=== PATIENT | male | born 1945 | race Hispanic/Latino ===

== ENCOUNTER 2021-03-12 07:29 | Observation (INO) | payer MEDICARE ==
[2021-03-12] MEDS ORDERED: ASPIRIN EC 325 MG TAB PO NR (08:37)
[2021-03-12] MEDS ORDERED: SODIUM CHLORIDE 0.9% 500 ML 500 ML IV SCH (09:00)
[2021-03-12 09:25] LABS: Basophils # (Auto) 0.1 K/mm3 (0.0-0.1); Eosinophils # (Auto) 0.4 K/mm3 (0.0-0.4); Eosinophils % (Auto) 6.1 % (0.0-4.3); Hematocrit 38.8 % (35.5-45.6); Hemoglobin 12.8 gm/dl (11.8-15.2); Lymphocytes # (Auto) 1.8 K/mm3 (1.2-5.4); Lymphocytes % (Auto) 24.6 % (13.4-35.0); Mean Corpuscular HGB Conc 33 % (32-34); Mean Corpuscular Volume 91 fl (84-94); Monocytes # (Auto) 0.7 K/mm3 (0.0-0.8); Platelet Count 213 K/mm3 (140-440); Red Blood Count 4.26 M/mm3 (3.65-5.03); Red Cell Distribution Width 13.5 % (13.2-15.2)
[2021-03-12] MEDS ORDERED: HEPARIN/NS 5000 UNIT/500ML 1,000 ML IR ONE (09:39)
[2021-03-12] MEDS ORDERED: NITROGLYCERIN SYRINGE 3 ML ONE (09:40)
[2021-03-12] MEDS ORDERED: MIDAZOLAM 2 MG/2 ML INJ ONE (09:40)
[2021-03-12] MEDS ORDERED: VERAPAMIL 5 MG/2 ML INJ ONE (09:40)
[2021-03-12] MEDS ORDERED: fentaNYL 100 MCG/2 ML INJ ONE (09:40)
[2021-03-12 09:46] LABS: BUN/Creatinine Ratio 21; Blood Urea Nitrogen 21 mg/dL (9-20); Calcium 9.6 mg/dL (8.4-10.2); Hemolysis Index 4
[2021-03-12 09:48] LABS: INR 0.97 (0.87-1.13)
[2021-03-12] MEDS: LIDOCAINE (2%) 20 MG/1 ML VIAL 20 ML MDV INFILTRATI ONE ×3 (10:37→10:56)
[2021-03-12] MEDS: HEPARIN 10,000 UNITS/10 ML VIAL ONE ×2 (11:12→11:36)
[2021-03-12] MEDS ORDERED: HEPARIN/NS 5000 UNIT/500ML 500 ML IR ONE (11:21)
[2021-03-12] MEDS ORDERED: CLOPIDOGREL 300 MG TAB ONE (11:43)
[2021-03-12] MEDS ORDERED: ALUM-MAG HYDROXIDE-SIMETHICONE 200-200-20MG/5ML ORAL LIQD 30 ML ONE (11:44)
[2021-03-12] MEDS ORDERED: HEPARIN 10,000 UNITS/10 ML VIAL ONE (11:46)
[2021-03-12] MEDS ORDERED: ONDANSETRON 4 MG/2 ML INJ IV PRN (12:11)
[2021-03-12] MEDS ORDERED: traMADol 50 MG TAB PO PRN (12:11)
[2021-03-12] MEDS ORDERED: SENNOSIDES 8.6 MG TAB PO PRN (12:11)
[2021-03-12] MEDS ORDERED: ACETAMINOPHEN 325 MG TAB PO PRN ×2 (12:11→13:26)
[2021-03-12] MEDS ORDERED: SODIUM CHLORIDE 0.9% 1000 ML 1,000 ML IV SCH (12:15)
--- NOTE | 2021-03-12 12:30 | Cardiac Catherization Report ---
DATE OF SERVICE: 03/12/2021 CARDIAC CATHETERIZATION AND CORONARY ANGIOPLASTY REPORT REASON FOR PROCEDURE: The patient is a 76-year-old man that underwent an outpatient cardiac ischemic evaluation with a thallium stress test that revealed a large inferolateral defect with mild reversible ischemia. He was recommended to undergo cardiac catheterization. PROCEDURES: 1. Left heart catheterization. 2. Selective left and right coronary angiography. 3. Left ventricular angiography. 4. Coronary angioplasty and stenting of the first obtuse marginal branch of the circumflex artery. 5. Sedation time start 10:52, end 11:38. DESCRIPTION OF PROCEDURE: The patient was prepped and draped in a sterile fashion after informed consent. The right femoral artery was entered using Seldinger technique followed by placement of a 6-Irish sheath. Selective left and right coronary angiography was performed using #4 left and right Samuel catheters. The pigtail catheter was used for left ventricular angiography. The angiograms were reviewed. CORONARY ANGIOGRAPHY: The left ventricular end-diastolic pressure was 18, following coronary angiography. Ascending aortic pressure 145/69. There was no significant pressure gradient on pullback across the aortic valve. There was mild proximal narrowing of the left main coronary artery. Left anterior descending artery contained mild luminal irregularities in its mid to distal segment, there was a 50-60% stenosis of the distal LAD at its apex. The first diagonal branch of the LAD was a medium sized vessel that contained a >90% ostial stenosis. This was followed by diffuse [id number] atherosclerosis of this medium sized branch vessel. The first obtuse marginal branch of the circumflex artery was a medium to large vessel that contained a long, 80-90% stenosis of its proximal-mid segment. Following that, the AV groove circumflex then terminated in another large, terminal obtuse marginal. There was diffuse moderate atherosclerosis of the mid circumflex leading into this terminal branch. The right coronary artery was a large caliber, dominant vessel that contained mild narrowing in its mid segment, but otherwise free of significant atherosclerosis. Left ventricle was mildly dilated, there was mild left ventricular systolic dysfunction with diffuse hypokinesis, ejection fraction 40-45%. CORONARY ANGIOPLASTY: After review of the angiograms, we recommended coronary intervention to the first obtuse marginal branch. In this scenario, the ostial stenosis of the first diagonal branch, which demonstrated no defects on thallium imaging, will be recommended for conservative medical management. We selected a 3.5 XB guiding catheter and advanced to the left coronary ostium. A 0.014 inch Enologist 50 guidewire was successfully directed into the obtuse marginal. The vessel was then predilated using a 2.25 mm balloon catheter. Following this, we deployed 2.25 x 15 mm drug-eluting stent, covering the entire lesional segment. The stent was inflated to a diameter of 2.45-2.50 mm. Following stenting, the catheters and the wires were removed, post-intervention angiogram showed an excellent angiographic result, no residual stenosis and ARACELI 3 flow maintained down the obtuse marginal. Procedure was well tolerated by the patient and there were no complications. The catheters were removed, and the patient returned to the postprocedure unit in stable condition. CONCLUSION: 1. Multivessel coronary artery disease, with a significant branch vessel disease of the first diagonal and the first obtuse marginal. 2. Successful ad hoc angioplasty and stenting of the first obtuse marginal branch, with deployment of a 2.25 mm drug-eluting stent, post-dilated to 2.45- 2.5 mm. 3. Mild left ventricular systolic dysfunction, ejection fraction 40-45%. RECOMMENDATIONS: Aggressive medical therapy including dual oral antiplatelet therapy for first obtuse marginal artery stent. Aggressive risk factor modification and medical therapy for other branch vessel and noncritical coronary artery disease. TID: [id number] RECEIPT: [id number] [facility]
[2021-03-12] MEDS: GABAPENTIN 300 MG CAP PO SCH ×2 (13:10→21:35)
[2021-03-12] MEDS: carvediloL 6.25 MG TAB PO SCH ×2 (13:10→21:35)
[2021-03-12] MEDS: PANTOPRAZOLE 20 MG TAB PO SCH (13:10)
[2021-03-12] MEDS ORDERED: HYDROcodone/ACETAMINOPHEN 5-325 MG TAB PO PRN (13:26)
[2021-03-12] MEDS ORDERED: NON-FORMULARY EACH (Albuterol Sulfate [Albuterol 0.63% Nebs] 0.63 MG/3 ML Vial.Neb) IH SCH (14:00)
[2021-03-12] MEDS ORDERED: ALBUTEROL 2.5 MG/3 ML NEBU IH SCH (14:00)
[2021-03-12] MEDS: HYDROcodone/ACETAMINOPHEN 5-325 MG TAB PO PRN ×2 (15:08→21:45)
[2021-03-12] MEDS: GEMFIBROZIL 600 MG TAB PO SCH (21:35)
[2021-03-12] MEDS ORDERED: ZOLPIDEM 5 MG TAB PO PRN (22:00)
[2021-03-12] MEDS ORDERED: PRAVASTATIN 80 MG TAB PO SCH (22:00)
[2021-03-12] MEDS ORDERED: PRAZOSIN 5 MG CAP PO SCH (22:00)
[2021-03-13 05:52] LABS: Basophils # (Auto) 0.1 K/mm3 (0.0-0.1); Basophils % (Auto) 0.9 % (0.0-1.8); Eosinophils # (Auto) 0.5 K/mm3 (0.0-0.4); Eosinophils % (Auto) 7.2 % (0.0-4.3); Hemoglobin 11.5 gm/dl (11.8-15.2); Lymphocytes # (Auto) 2.4 K/mm3 (1.2-5.4); Lymphocytes % (Auto) 36.8 % (13.4-35.0); Mean Corpuscular HGB Conc 34 % (32-34); Mean Corpuscular Volume 91 fl (84-94); Monocytes # (Auto) 0.7 K/mm3 (0.0-0.8); Monocytes % (Auto) 10.8 % (0.0-7.3); Platelet Count 185 K/mm3 (140-440); Red Blood Count 3.72 M/mm3 (3.65-5.03); Red Cell Distribution Width 13.8 % (13.2-15.2)
[2021-03-13 05:58] LABS: BUN/Creatinine Ratio 19; Blood Urea Nitrogen 15 mg/dL (9-20); Calcium 8.8 mg/dL (8.4-10.2); Hemolysis Index 8
--- NOTE | 2021-03-13 08:08 | Short Stay Summary ---
Short Stay Documentation Date of service: 03/13/21 - History H&P: obtained from office - Allergies and Medications Current Medications: Allergies No Known Allergies Allergy (Unverified 03/12/21 08:36) Home Medications Medication Instructions Recorded Confirmed Last Taken Type Albuterol Sulfate [Albuterol 0.63% 0.63 mg IH TID 03/12/21 03/12/21 03/11/21 History NEBS] 3 ml Aspirin EC [Halfprin EC] 2 tab PO HS 03/12/21 03/12/21 03/11/21 History 2 tab Gabapentin [Neurontin] 300 mg PO TID 03/12/21 03/12/21 03/11/21 History 300 mg Insulin Glargine [Lantus VIAL] 30 units SQ QAM 03/12/21 03/12/21 03/12/21 05:30 History 8 units Ipratropium/Albuter (Nf) 1 puff INHALATION PRN PRN 03/12/21 03/12/21 03/11/21 History [Combivent Inhaler] 1 puff Mirabegron [Myrbetriq] 50 mg PO QDAY 03/12/21 03/12/21 03/11/21 History 50 mg Multivit-Min/FA/Lycopen/Lutein 1 tab PO DAILY 03/12/21 03/12/21 03/11/21 History [Centrum Silver Tablet] 1 tab Pantoprazole [Protonix TAB] 20 mg PO DAILY 03/12/21 03/12/21 03/11/21 History 20 mg Pravastatin [Pravachol] 80 mg PO DAILY 03/12/21 03/12/21 03/11/21 History 80 mg Semaglutide [Ozempic] 0.5 mg SQ 1XW 03/12/21 03/12/21 03/11/21 History 0.5mg Sertraline [Zoloft] 75 mg PO DAILY 03/12/21 03/12/21 03/11/21 History 75 mg Terazosin HCl 10 mg PO DAILY 03/12/21 03/12/21 03/11/21 History 10 mg carvediloL [Coreg] 6.25 mg PO BID 03/12/21 03/12/21 03/11/21 History 6.25mg gemfibroziL [Lopid] 600 mg PO BID 03/12/21 03/12/21 03/11/21 History 600 mg Active Medications Acetaminophen (Acetaminophen 325 Mg Tab) 650 mg PO Q4H PRN PRN Reason: Pain MILD(1-3)/Fever >100.5/VICENTE Hydrocodone Bitart/Acetaminophen (Hydrocodone/Acetaminophen 5-325 Mg Tab) 1 each PO Q6H PRN PRN Reason: Pain, Moderate (4-6) Last Admin: 03/12/21 21:45 Dose: 1 each Documented by: Albuterol (Albuterol 2.5 Mg/3 Ml Nebu) 2.5 mg IH TIDRT [facility] Aspirin (Aspirin Ec 325 Mg Tab) 81 mg PO QDAY [facility] Carvedilol (Carvedilol 6.25 Mg Tab) 6.25 mg PO BID [facility] Last Admin: 03/12/21 21:35 Dose: 6.25 mg Documented by: Clopidogrel Bisulfate (Clopidogrel 75 Mg Tab) 75 mg PO QDAY [facility] Gabapentin (Gabapentin 300 Mg Cap) 300 mg PO TID [facility] Last Admin: 03/12/21 21:35 Dose: 300 mg Documented by: Gemfibrozil (Gemfibrozil 600 Mg Tab) 600 mg PO BID [facility] Last Admin: 03/12/21 21:35 Dose: 600 mg Documented by: Isosorbide Mononitrate (Isosorbide Mononitrate Er 30 Mg Tab) 30 mg PO QDAY [facility] Last Admin: 03/12/21 13:09 Dose: 30 mg Documented by: Ondansetron HCl (Ondansetron 4 Mg/2 Ml Inj) 4 mg IV Q8H PRN PRN Reason: N/V unrelieved by Lashon Pantoprazole Sodium (Pantoprazole 20 Mg Tab) 20 mg PO DAILY [facility] Last Admin: 03/12/21 13:10 Dose: 20 mg Documented by: Pravastatin Sodium (Pravastatin 80 Mg Tab) 80 mg PO QHS [facility] Last Admin: 03/12/21 21:35 Dose: 80 mg Documented by: Prazosin HCl (Prazosin 5 Mg Cap) 5 mg PO Q12HR [facility] Last Admin: 03/12/21 21:43 Dose: 5 mg Documented by: Senna (Sennosides 8.6 Mg Tab) 8.6 mg PO Q12H PRN PRN Reason: Laxative Effect Sertraline HCl (Sertraline 25 Mg Tab) 75 mg PO QDAY [facility] Tramadol HCl (Tramadol 50 Mg Tab) 50 mg PO Q4H PRN PRN Reason: Pain, Mild (1-3) Zolpidem Tartrate (Zolpidem 5 Mg Tab) 5 mg PO QHS PRN PRN Reason: Sleep Last Admin: 03/12/21 21:45 Dose: 5 mg Documented by: - Physical exam General appearance: no acute distress HEENT: PERRLA Lungs: Clear to auscultation Heart: Regular rate, Normal S1, Normal S2 - Brief post op/procedure progress note Condition: stable - Hospital course Hospital course: Stable overnight observation. - Disposition Condition at discharge: Good Short Stay Discharge Plan Activity: advance as tolerated Weight Bearing Status: Partial Weight Bearing Diet: low fat, low cholesterol, low salt Wound: open to air, keep clean and dry Follow up with: NED VITALE MD [Primary Care Provider] - 7 Days Forms: CardCath PCI D/C Instructions Prescriptions: ISOSORBIDE MONOnitrate [Imdur ER] 30 mg PO QDAY #30 tablet Clopidogrel [Plavix] 75 mg PO QDAY #30 tablet
[2021-03-13] MEDS: GEMFIBROZIL 600 MG TAB PO SCH ×2 (08:26→10:00)
[2021-03-13] MEDS: CLOPIDOGREL 75 MG TAB PO SCH ×2 (08:27→10:00)
[2021-03-13] MEDS: PANTOPRAZOLE 20 MG TAB PO SCH ×2 (08:27→10:00)
[2021-03-13] MEDS: GABAPENTIN 300 MG CAP PO SCH ×2 (08:27→14:16)
[2021-03-13] MEDS: SERTRALINE 25 MG TAB PO SCH ×2 (08:27→14:11)
[2021-03-13] MEDS ORDERED: SERTRALINE 50 MG TAB PO SCH (10:00)
[2021-03-13] MEDS ORDERED: ASPIRIN EC 325 MG TAB PO SCH (10:00)
[2021-03-13] MEDS ORDERED: NON-FORMULARY EACH (Terazosin Hcl [Terazosin Hcl] 10 MG Capsule) PO SCH (10:00)
--- NOTE | 2021-03-13 11:13 | Electrocardiograph Report ---
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
--- NOTE | 2021-03-13 11:17 | XRay Report ---
CHEST 1 VIEW 03/13/2021 9:30 AM INDICATION / CLINICAL INFORMATION: post pci. COMPARISON: None available. FINDINGS: SUPPORT DEVICES: None. HEART / MEDIASTINUM: No significant abnormality. LUNGS / PLEURA: No significant pulmonary or pleural abnormality. No pneumothorax. ADDITIONAL FINDINGS: No significant additional findings. IMPRESSION: 1. No acute findings. Signer Name: Ruel Weeks MD Signed: 03/13/2021 11:13 AM Workstation Name: [id number]
--- NOTE | 2021-03-13 11:20 | Electrocardiograph Report ---
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
--- NOTE | 2021-03-13 11:34 | Electrocardiograph Report ---
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 Electronically Signed On 03-13-2021 11:33:32 EDT by Elgin Bone
[2021-03-13 13:45] VITALS: BP 163/87
[2021-03-13] MEDS: carvediloL 6.25 MG TAB PO SCH (14:16)
[2021-03-14] MEDS ORDERED: ASPIRIN EC 81 MG TAB PO SCH (10:00)
== END 2021-03-13 15:47 | disposition home or self-care (01) ==
LOC: CATHLABREC 07:29 → INTOOBSV 13:26 → 4A 13:26
PROVIDERS: ADMIT Internal Medicine Cardiovascular Disease; ATTEND Internal Medicine Cardiovascular Disease
DX: I25.10 Atherosclerotic heart disease of native coronary artery without angina pectoris (principal); I10 Essential (primary) hypertension; I45.2 Bifascicular block; I67.9 Cerebrovascular disease, unspecified; E11.9 Type 2 diabetes mellitus without complications; Z79.4 Long term (current) use of insulin; Z79.82 Long term (current) use of aspirin
CPT/HCPCS: 36415; 71045; 80048; 82962; 84484; 85025; 85610; 93005; 93458; 96360; 96361; A9270; C1725; C1769; C1874; C1887; C1894; C9600; G0378; J1644; J2250; J3010; J7030; J7040; 92928; Q9967

== ENCOUNTER 2021-03-31 16:08 | Observation (INO) | payer MEDICARE ==
[2021-03-31] MEDS ORDERED: ASPIRIN 81 MG TAB CHEW PO ONE (16:28)
--- NOTE | 2021-03-31 16:58 | Emergency Department Report ---
ED Chest Pain HPI - General Chief Complaint: Chest Pain Stated Complaint: CHEST DISCOMFORT PUI?: No Time Seen by Provider: 03/31/21 16:26 Source: patient, EMS Mode of arrival: Ambulatory Limitations: No Limitations - History of Present Illness Initial Comments: Chief complaint: Chest pain HPI: This is a 76-year-old male with history of hyperlipidemia, pulmonary embolism, coronary disease status post cardiac stent on 03/12/2021 who presents with chest pain. According to electronic medical record outpatient cardiac ischemic evaluation with thallium stress test revealed a large inferolateral defect with mild reversible ischemia. Dr. Shaw performed outpatient coronary intervention to the first obtuse marginal branch of the circumflex on March 12, 2021. Mr. Rey had chest pain since angioplasty and cardiac stenting. Since Thursday pain became more severe dull ache. He noticed after walking from bathroom to bed this morning he had severe shortness of breath in chest pressure. He does not take nitroglycerin. He had facial rash redness due to new medication. Consequently Dr. Shaw stopped Plavix on Thursday. He is now taking Brilinta twice a day. MD Complaint: chest pain -: Gradual Severity: moderate Quality: pressure Consistency: intermittent - Related Data Home Medications Medication Instructions Recorded Confirmed Last Taken Albuterol Sulfate [Albuterol 0.63% 0.63 mg IH TID 03/12/21 03/12/21 03/11/21 NEBS] 3 ml Aspirin EC [Halfprin EC] 2 tab PO HS 03/12/21 03/12/21 03/11/21 2 tab Gabapentin 300 mg PO TID 03/12/21 03/12/21 03/11/21 300 mg Insulin Glargine [Lantus VIAL] 30 units SQ QAM 03/12/21 03/12/21 03/12/21 05:30 8 units Ipratropium/Albuter (Nf) 1 puff INHALATION PRN PRN 03/12/21 03/12/21 03/11/21 [Combivent Inhaler] 1 puff Mirabegron [Myrbetriq] 50 mg PO QDAY 03/12/21 03/12/21 03/11/21 50 mg Multivit-Min/FA/Lycopen/Lutein 1 tab PO DAILY 03/12/21 03/12/21 03/11/21 [Centrum Silver Tablet] 1 tab Pantoprazole [Protonix TAB] 20 mg PO DAILY 03/12/21 03/12/21 03/11/21 20 mg Pravastatin [Pravachol] 80 mg PO DAILY 03/12/21 03/12/21 03/11/21 80 mg Semaglutide [Ozempic] 0.5 mg SQ 1XW 03/12/21 03/12/21 03/11/21 0.5mg Sertraline [Zoloft] 75 mg PO DAILY 03/12/21 03/12/21 03/11/21 75 mg Terazosin HCl 10 mg PO DAILY 03/12/21 03/12/21 03/11/21 10 mg carvediloL [Coreg] 6.25 mg PO BID 03/12/21 03/12/21 03/11/21 6.25mg gemfibroziL [Lopid] 600 mg PO BID 03/12/21 03/12/21 03/11/21 600 mg Previous Rx's Medication Instructions Recorded Last Taken Type Clopidogrel [Plavix] 75 mg PO QDAY #30 tablet 03/13/21 Unknown Rx ISOSORBIDE MONOnitrate [Imdur ER] 30 mg PO QDAY #30 tablet 03/13/21 Unknown Rx Allergies Allergy/AdvReac Type Severity Reaction Status Date / Time No Known Allergies Allergy Unverified 03/12/21 08:36 Heart Score - HEART Score History: Highly suspicious EKG: Non-specific Age: > 65 Risk factors: > 3 risk factors or hx of atherosclerotic disease Troponin: < normal limit HEART Score: 7 - EKG Read Time Time EKG Completed: 16:21 EKG Read Time: 16:30 - Critical Actions Critical Actions: >7 pts:50-65% risk of adverse cardiac event. Early invasive measures ED Review of Systems ROS: Stated complaint: CHEST DISCOMFORT Other details as noted in HPI Comment: All other systems reviewed and negative Constitutional: denies: chills, fever, malaise Respiratory: denies: cough, shortness of breath Cardiovascular: chest pain ED Past Medical Hx - Past Medical History Previous Medical History?: Yes Hx Hypertension: Yes Hx Heart Attack/AMI: No Hx Congestive Heart Failure: No Hx Diabetes: Yes Hx Deep Vein Thrombosis: Yes Hx GERD: Yes Hx Liver Disease: No Hx Arthritis: Yes Hx COPD: Yes Additional medical history: CAD - Surgical History Past Surgical History?: Yes Hx Coronary Stent: Yes - Family History Family history: hypertension, vascular disease - Social History Smoking Status: Former Smoker Substance Use Type: None - Medications Home Medications: Home Medications Medication Instructions Recorded Confirmed Last Taken Type Albuterol Sulfate [Albuterol 0.63% 0.63 mg IH TID 03/12/21 03/12/21 03/11/21 History NEBS] 3 ml Aspirin EC [Halfprin EC] 2 tab PO HS 03/12/21 03/12/21 03/11/21 History 2 tab Gabapentin 300 mg PO TID 03/12/21 03/12/21 03/11/21 History 300 mg Insulin Glargine [Lantus VIAL] 30 units SQ QAM 03/12/21 03/12/21 03/12/21 05:30 History 8 units Ipratropium/Albuter (Nf) 1 puff INHALATION PRN PRN 03/12/21 03/12/21 03/11/21 History [Combivent Inhaler] 1 puff Mirabegron [Myrbetriq] 50 mg PO QDAY 03/12/21 03/12/21 03/11/21 History 50 mg Multivit-Min/FA/Lycopen/Lutein 1 tab PO DAILY 03/12/21 03/12/21 03/11/21 History [Centrum Silver Tablet] 1 tab Pantoprazole [Protonix TAB] 20 mg PO DAILY 03/12/21 03/12/21 03/11/21 History 20 mg Pravastatin [Pravachol] 80 mg PO DAILY 03/12/21 03/12/21 03/11/21 History 80 mg Semaglutide [Ozempic] 0.5 mg SQ 1XW 03/12/21 03/12/21 03/11/21 History 0.5mg Sertraline [Zoloft] 75 mg PO DAILY 03/12/21 03/12/21 03/11/21 History 75 mg Terazosin HCl 10 mg PO DAILY 03/12/21 03/12/21 03/11/21 History 10 mg carvediloL [Coreg] 6.25 mg PO BID 03/12/21 03/12/21 03/11/21 History 6.25mg gemfibroziL [Lopid] 600 mg PO BID 03/12/21 03/12/2103/11/21 History 600 mg Clopidogrel [Plavix] 75 mg PO QDAY #30 tablet 03/13/21 Unknown Rx ISOSORBIDE MONOnitrate [Imdur ER] 30 mg PO QDAY #30 tablet 03/13/21 Unknown Rx ED Physical Exam - General Limitations: No Limitations General appearance: alert, in no apparent distress - Head Head exam: Present: atraumatic, normocephalic - Eye Eye exam: Present: normal appearance - ENT ENT exam: Present: mucous membranes moist - Neck Neck exam: Present: normal inspection, full ROM - Respiratory Respiratory exam: Present: normal lung sounds bilaterally. Absent: respiratory distress, wheezes, rales, rhonchi - Cardiovascular Cardiovascular Exam: Present: regular rate, normal rhythm, normal heart sounds. Absent: systolic murmur, diastolic murmur, rubs, gallop - GI/Abdominal GI/Abdominal exam: Present: soft, normal bowel sounds. Absent: distended, tenderness, guarding, rebound - Rectal Rectal exam: Present: deferred - Extremities Exam Extremities exam: Present: other (Right upper extremity amputated stump) - Neurological Exam Neurological exam: Present: alert, oriented X3 - Psychiatric Psychiatric exam: Present: normal affect, normal mood - Skin Skin exam: Present: warm, rash, other (Diffuse redness of face with flaking scaling skin) ED Medical Decision Making - Lab Data Result diagrams: 03/31/21 18:22 03/31/21 16:29 - EKG Data -: EKG Interpreted by Me EKG shows normal: sinus rhythm Rate: normal - EKG Data 03/31/21 17:09 EKG obtained 1621 EKG interpreted by me Rate 65 bpm left axis deviation normal QTC right bundle branch block no ST elev ation nonischemic T wave pattern - Radiology Data Radiology results: report reviewed Patient Name: BRIANNA REY Gender: Male Date of : 1945 Referring Provider: PATEL MEZA Organization: [facility] Accession Number: [id number] Requested Date: March 31, 2021 16:21 Report Status: Final Requested Procedure: 1 Procedure Description: XR chest routine 2V Modality: XR Findings Reporting MD: Donell Morgan Dictation Time: March 31, 2021 15:51 Basic Acoustic Analyst: Not available Nurse Staff Industrial Date: CHEST 2 VIEWS INDICATION / CLINICAL INFORMATION: chest pain. COMPARISON: 03/13/2021 FINDINGS: SUPPORT DEVICES: Loop recorder projects over the left lower chest. HEART / MEDIASTINUM: No significant abnormality. LUNGS / PLEURA: No significant pulmonary or pleural abnormality. No pneumothorax. ADDITIONAL FINDINGS: No significant additional findings. IMPRESSION: 1. No acute findings. Signer Name: Donell Morgan MD Signed: 03/31/2021 3:51 PM Workstation Name: [id number] Patient Name: BRIANNA REY Gender: Male Date of : 1945 Referring Provider: STACEY ROSARIO Organization: [facility] Accession Number: [id number] Requested Date: March 31, 2021 17:43 Report Status: Final Requested Procedure: 1 Procedure Description: NM perfusion only lung scan Modality: NM Findings Reporting MD: Jose Landrum Dictation Time: March 31, 2021 19:12 Basic Acoustic Analyst: Not available Nurse Staff Industrial Date: NUCLEAR MEDICINE PERFUSION LUNG SCAN INDICATION / CLINICAL INFORMATION: chest pain hx of PE. TECHNIQUE: 5.5 mCi of Tc-99m MAA were given by IV. COMPARISON: Chest radiograph dated 03/31/21. FINDINGS: PERFUSION: No significant perfusion defects. ADDITIONAL FINDINGS: None. IMPRESSION: 1. Low probability for pulmonary embolism. Signer Name: Jose Landrum MD Signed: 03/31/2021 7:12 PM Workstation Name: [id number] - Medical Decision Making Acute coronary syndrome, unstable angina: I spoke with Dr. Shaw's colleague Dr. Ramires who recommended heparin therapy. Patient is admitted to the hospital service. Nuclear perfusion lung scan low probability for pulmonary embolism. Critical care attestation.: If time is entered above; I have spent that time in minutes in the direct care of this critically ill patient, excluding procedure time. ED Disposition Clinical Impression: Acute coronary syndrome Disposition: 09 ADMITTED INPATIENT Is pt being admited?: Yes Does the pt Need Aspirin: No Condition: Stable
[2021-03-31 17:09] LABS: Basophils # (Auto) 0.1 K/mm3 (0.0-0.1); Eosinophils # (Auto) 0.4 K/mm3 (0.0-0.4); Eosinophils % (Auto) 5.6 % (0.0-4.3); Hemoglobin 12.8 gm/dl (11.8-15.2); Lymphocytes # (Auto) 1.7 K/mm3 (1.2-5.4); Lymphocytes % (Auto) 26.4 % (13.4-35.0); Mean Corpuscular HGB Conc 34 % (32-34); Mean Corpuscular Volume 92 fl (84-94); Monocytes # (Auto) 0.7 K/mm3 (0.0-0.8); Monocytes % (Auto) 10.8 % (0.0-7.3); Platelet Count 220 K/mm3 (140-440); Red Blood Count 4.12 M/mm3 (3.65-5.03)
[2021-03-31 17:27] LABS: Alanine Aminotransferase 9 units/L (7-56); Albumin 4.2 g/dL (3.9-5); BUN/Creatinine Ratio 21; Blood Urea Nitrogen 17 mg/dL (9-20); Hemolysis Index 3
[2021-03-31] MEDS ORDERED: HYDROCORTISONE 1% CREAM 28.4GM TP ONE (18:17)
[2021-03-31 18:38] LABS: Hematocrit 39.5 % (35.5-45.6); Hemoglobin 12.9 gm/dl (11.8-15.2)
[2021-03-31 18:46] LABS: INR 0.95 (0.87-1.13)
[2021-03-31 18:47] LABS: Partial Thromboplastin Time 26.4 Sec. (24.2-36.6)
[2021-03-31] MEDS ORDERED: HEPARIN/ 0.45% NACL DRIP 25,000 UNIT/500 ML BAG IV SCH (19:00)
--- NOTE | 2021-03-31 20:11 | History and Physical Report ---
History of Present Illness Date of examination: 03/31/21 Date of admission: 03/31/2021 Chief complaint: Chest pain for 2 weeks History of present illness: 76-year-old male with history of coronary artery disease, hyperlipidemia, pulmonary embolism and hyperlipidemia comes in for chest pain since 03/13/2021. Patient had angioplasty and had PCI of the first obtuse marginal branch of the circumflex on March 12, 2021. Patient also had mild reversible ischemia on the stress thallium. Since Thursday which is 2 days ago the. Pain has become more and patient noticed on walking from bathroom to bed in the morning. Also with shortness of breath in the morning associated with chest pressure. He does not take nitroglycerin. Patient attributes the redness of the face to Plavix and it was stopped. Patient is now taking Brilinta twice a day. Exertion is a precipitating factor - Past Medical History Previous Medical History?: Yes --Hypertension: Yes --Diabetes: Yes --Deep Vein Thrombosis: Yes --GERD: Yes --Arthritis: Yes --COPD: Yes Additional medical history: CAD - Surgical History --Past Surgical History?: Yes --Coronary Stent: Yes - Family History --hypertension, vascular disease - Social History --Smoking Status: Former Smoker --Substance Use Type: None Review of Systems ROS: Constitutional no weight loss or weight gain no fever or chills HEENT no sore throat no post nasal drip no diplopia Neck no neck stiffness no lymph gland enlargement Chest and lungs chest pain on exertion for the last 3 weeks CVS no chest pain no diaphoresis no palpitations GI no nausea no vomiting no diarrhea Genitourinary system no dysuria no flank pain Musculoskeletal system no muscle pains no joint pains [employer] no syncope no seizures Skin no rash no itching Psychiatric no depression no homicidal or suicidal tendencies Hematologic no lymphedema or bruising Endocrine no polydipsia no polyuria no cold intolerance no heat intolerance Medications and Allergies Allergies Allergy/AdvReac Type Severity Reaction Status Date / Time clopidogrel Allergy Rash Verified 03/31/21 21:08 isosorbide Allergy Rash Verified 03/31/21 21:08 Home Medications Medication Instructions Recorded Confirmed Last Taken Type Albuterol Sulfate [Albuterol 0.63% 0.63 mg IH TID 03/12/21 03/12/21 03/11/21 History NEBS] 3 ml Aspirin EC [Halfprin EC] 2 tab PO HS 03/12/21 03/12/21 03/11/21 History 2 tab Gabapentin 300 mg PO TID 03/12/21 03/12/21 03/11/21 History 300 mg Insulin Glargine [Lantus VIAL] 30 units SQ QAM 03/12/21 03/12/21 03/12/21 05:30 History 8 units Ipratropium/Albuter (Nf) 1 puff INHALATION PRN PRN 03/12/21 03/12/21 03/11/21 History [Combivent Inhaler] 1 puff Mirabegron [Myrbetriq] 50 mg PO QDAY 03/12/21 03/12/21 03/11/21 History 50 mg Multivit-Min/FA/Lycopen/Lutein 1 tab PO DAILY 03/12/21 03/12/21 03/11/21 History [Centrum Silver Tablet] 1 tab Pantoprazole [Protonix TAB] 20 mg PO DAILY 03/12/21 03/12/21 03/11/21 History 20 mg Pravastatin [Pravachol] 80 mg PO DAILY 03/12/21 03/12/21 03/11/21 History 80 mg Semaglutide [Ozempic] 0.5 mg SQ 1XW 03/12/21 03/12/21 03/11/21 History 0.5mg Sertraline [Zoloft] 75 mg PO DAILY 03/12/21 03/12/21 03/11/21 History 75 mg Terazosin HCl 10 mg PO DAILY 03/12/21 03/12/21 03/11/21 History 10 mg carvediloL [Coreg] 6.25 mg PO BID 03/12/21 03/12/21 03/11/21 History 6.25mg gemfibroziL [Lopid] 600 mg PO BID 03/12/21 03/12/21 03/11/21 History 600 mg ISOSORBIDE MONOnitrate [Imdur ER] 30 mg PO QDAY #30 tablet 03/13/21 Unknown Rx Ticagrelor [Brilinta] 90 mg PO BID 03/31/21 03/31/21 Unknown History Active Meds: Active Medications Heparin Sodium/Sodium Chloride (Heparin/ 0.45% Nacl-25,000 Unit/500 Ml) 25,000 unit in 500 mls @ 20 mls/hr IV TITRATE [facility]; Protocol Exam - Constitutional General appearance: Present: no acute distress, well-nourished - EENT Eyes: Present: PERRL ENT: hearing intact, clear oral mucosa - Neck Neck: Present: supple, normal ROM - Respiratory Respiratory effort: normal Respiratory: bilateral: CTA - Cardiovascular Heart rate: 78 Rhythm: regular Heart Sounds: Present: S1 & S2. Absent: rub, click - Extremities Extremities: pulses symmetrical, No edema Peripheral Pulses: within normal limits - Abdominal General gastrointestinal: Present: soft, non-tender, non-distended, normal bowel sounds Male genitourinary: Present: normal - Rectal Rectal Exam: deferred - Integumentary Integumentary: Present: clear, warm, dry - Musculoskeletal Musculoskeletal: gait normal, strength equal bilaterally - Psychiatric Psychiatric: appropriate mood/affect, intact judgment & insight - Neurologic Neurologic: CNII-XII intact, moves all extremities - Allied Health Allied health notes reviewed: nursing, case management HEART Score - HEART Score History: Moderately suspicious EKG: Non-specific Age: > 65 Risk factors: > 3 risk factors or hx of atherosclerotic disease Troponin: Troponin T < 0.010 ng/mL (0.00-0.029) 03/31/21 18:22 Troponin: < normal limit HEART Score: 6 - Critical Actions Critical Actions: 4-6 pts:12-16.6% risk of adverse cardiac event. Should be admitted Results - Labs CBC & Chem 7: 04/01/21 03:04 04/01/21 03:04 Labs: Laboratory Last Values WBC 6.3 K/mm3 (4.5-11.0) 03/31/21 16:29 RBC 4.12 M/mm3 (3.65-5.03) 03/31/21 16:29 Hgb 12.9 gm/dl (11.8-15.2) 03/31/21 18:22 Hct 39.5 % (35.5-45.6) 03/31/21 18:22 MCV 92 fl (84-94) 03/31/21 16:29 MCH 31 pg (28-32) 03/31/21 16:29 MCHC 34 % (32-34) 03/31/21 16:29 RDW 14.0 % (13.2-15.2) 03/31/21 16:29 Plt Count 233 K/mm3 (140-440) 03/31/21 18:22 Lymph % (Auto) 26.4 % (13.4-35.0) 03/31/21 16:29 [place] % (Auto) 10.8 % (0.0-7.3) H 03/31/21 16:29 Eos % (Auto) 5.6 % (0.0-4.3) H 03/31/21 16:29 Baso % (Auto) 1.0 % (0.0-1.8) 03/31/21 16: Lymph # (Auto) 1.7 K/mm3 (1.2-5.4) 03/31/21 16: [place] # (Auto) 0.7 K/mm3 (0.0-0.8) 03/31/21 16: Eos # (Auto) 0.4 K/mm3 (0.0-0.4) 03/31/21 16: Baso # (Auto) 0.1 K/mm3 (0.0-0.1) 03/31/21 16:29 Seg Neutrophils % 56.2 % (40.0-70.0) 03/31/21 16: Seg Neutrophils # 3.6 K/mm3 (1.8-7.7) 03/31/21 16:29 PT 13.3 Sec. (12.2-14.9) 03/31/21 18:05 INR 0.95 (0.87-1.13) 03/31/21 18:05 APTT 26.4 Sec. (24.2-36.6) 03/31/21 18:05 D-Dimer 237.61 ng/mlDDU (0-234) H 03/31/21 18:05 Sodium 142 mmol/L (137-145) 03/31/21 16:29 Potassium 4.4 mmol/L (3.6-5.0) 03/31/21 16:29 Chloride 104.0 mmol/L (98-107) 03/31/21 16:29 Carbon Dioxide 26 mmol/L (22-30) 03/31/21 16:29 Anion Gap 16 mmol/L 03/31/21 16:29 BUN 17 mg/dL (9-20) 03/31/21 16:29 Creatinine 0.8 mg/dL (0.8-1.3) 03/31/21 16:29 Estimated GFR > 60 ml/min 03/31/21 16:29 BUN/Creatinine Ratio 21 % 03/31/21 16:29 Glucose 108 mg/dL (75-100) H 03/31/21 16:29 Calcium 9.0 mg/dL (8.4-10.2) 03/31/21 16:29 Total Bilirubin 0.30 mg/dL (0.1-1.2) 03/31/21 16:29 AST 13 units/L (5-40) 03/31/21 16:29 ALT 9 units/L (7-56) 03/31/21 16:29 Alkaline Phosphatase 86 units/L (35-129) 03/31/21 16:29 Troponin T < 0.010 ng/mL (0.00-0.029) 03/31/21 18:22 Total Protein 7.1 g/dL (6.3-8.2) 03/31/21 16:29 Albumin 4.2 g/dL (3.9-5) 03/31/21 16:29 Albumin/Globulin Ratio 1.4 % 03/31/21 16:29 Short CBC 03/31/21 03/31/21 04/01/21 Range/Units 16:29 18:22 03:04 WBC 6.3 6.6 (4.5-11.0) K/mm3 Hgb 12.8 12.9 12.2 (11.8-15.2) gm/dl Hct 38.0 39.5 35.9 (35.5-45.6) % Plt Count 220 233 202 (140-440) K/mm3 BMP 03/31/21 04/01/21 16:29 03:04 Sodium 142 142 Potassium 4.4 3.9 Chloride 104.0 104.5 Carbon Dioxide BUN 17 19 Creatinine 0.8 0.8 Glucose 108 H 114 H Calcium 9.0 8.6 Cardiac Enzymes 03/31/21 03/31/21 Range/Units 16:29 18:22 Troponin T < 0.010 < 0.010 (0.00-0.029) ng/mL Liver Function 03/31/21 04/01/21 Range/Units 16:29 03:04 Total Bilirubin 0.30 0.20 (0.1-1.2) mg/dL AST 13 11 (5-40) units/L ALT 9 9 (7-56) units/L Alkaline Phosphatase 86 76 (35-129) units/L Albumin 4.2 3.8 L (3.9-5) g/dL - Imaging and Cardiology EKG: report reviewed (Right bundle branch block present) Chest x-ray: report reviewed (No acute findings) Imaging and Cardiology: 03/31/21 17:09 EKG obtained 1621 Rate 65 bpm left axis deviation normal QTC right bundle branch block no ST elevation nonischemic T wave pattern Assessment and Plan Advance Directives: Yes (Full code) VTE prophylaxis?: Chemical Plan of care discussed with patient/family: Yes - Patient Problems (1) Unstable angina Current Visit: Yes Status: Acute Plan to address problem: Patient initiated on IV heparin drip per protocol Cardiology consult requested Will defer to cardiology regarding cardiac cath/stress test (2) Hypertension Current Visit: No Status: Chronic Qualifiers: Hypertension type: primary hypertension Qualified Code(s): I10 - Essential (primary) hypertension Plan to address problem: Continue antihypertensives and adjust medications as necessary (3) IDDM (insulin dependent diabetes mellitus) Current Visit: No Status: Chronic Plan to address problem: Continue home insulin, Ozempic and coverage Check hemoglobin A1c (4) Peripheral neuropathy Current Visit: No Status: Chronic Qualifiers: Peripheral neuropathy type: polyneuropathy, unspecified Qualified Code(s): G62.9 - Polyneuropathy, unspecified Plan to address problem: Continue Lyrica (5) COPD (chronic obstructive pulmonary disease) Current Visit: No Status: Chronic Qualifiers: Emphysema type: unspecified Plan to address problem: Nebulizer treatments on a as needed basis (6) OAB (overactive bladder) Current Visit: No Status: Chronic Plan to address problem: Patient on Myrbetriq (7) GERD (gastroesophageal reflux disease) Current Visit: No Status: Chronic Qualifiers: Esophagitis presence: without esophagitis Qualified Code(s): K21.9 - Gastro-esophageal reflux disease without esophagitis Plan to address problem: Continue PPIs (8) Hyperlipidemia Current Visit: No Status: Chronic Qualifiers: Hyperlipidemia type: mixed hyperlipidemia Qualified Code(s): E78.2 - Mixed hyperlipidemia Plan to address problem: Continue statins (9) Coronary artery disease Current Visit: No Status: Chronic Qualifiers: Coronary Disease-Associated Artery/Lesion type: [place] artery [place] vs. transplanted heart: [place] heart Plan to address problem: Patient had PCI and stent recently on March 12, 2021 Patient continues to have chest pain Patient is on Brilinta Plavix was discontinued because of possible allergic rash (10) DVT prophylaxis Current Visit: No Status: Acute Plan to address problem: On heparin drip and GI prophylaxis
--- NOTE | 2021-03-31 20:17 | Nuclear Medicine Report ---
NUCLEAR MEDICINE PERFUSION LUNG SCAN INDICATION / CLINICAL INFORMATION: chest pain hx of PE. TECHNIQUE: 5.5 mCi of Tc-99m MAA were given by IV. COMPARISON: Chest radiograph dated 03/31/21. FINDINGS: PERFUSION: No significant perfusion defects. ADDITIONAL FINDINGS: None. IMPRESSION: 1. Low probability for pulmonary embolism. Signer Name: Jose Landrum MD Signed: 03/31/2021 8:12 PM Workstation Name: [id number]
[2021-03-31] MEDS ORDERED: METOCLOPRAMIDE 10 MG/2 ML INJ IV PRN (20:36)
[2021-03-31] MEDS ORDERED: HYDROmorphone 1 MG/1 ML INJ IV PRN (20:36)
[2021-03-31] MEDS ORDERED: INSULIN LISPRO 100 UNIT/ML SUB-Q ONE (20:42)
[2021-03-31] MEDS ORDERED: HEPARIN 10,000 UNITS/10 ML VIAL IV PRN (20:50)
[2021-03-31] MEDS ORDERED: CLOPIDOGREL 75 MG TAB PO SCH (21:00)
[2021-03-31] MEDS: ASPIRIN EC 81 MG TAB PO SCH (21:46)
[2021-03-31] MEDS: SERTRALINE 25 MG TAB PO SCH (21:46)
[2021-03-31] MEDS: carvediloL 6.25 MG TAB PO SCH (21:46)
[2021-03-31] MEDS: NON-FORMULARY EACH (Mirabegron [Myrbetriq] 50 MG Tab.Er.24h) PO SCH (22:19)
[2021-03-31] MEDS: PRAVASTATIN 80 MG TAB PO SCH (22:49)
[2021-03-31] MEDS: GEMFIBROZIL 600 MG TAB PO SCH (22:49)
[2021-03-31] MEDS: SODIUM CHLORIDE 0.9% 1000 ML 1,000 ML IV SCH (22:54)
[2021-03-31] MEDS: ACETAMINOPHEN 325 MG TAB PO PRN (23:50)
[2021-04-01] MEDS: MORPHINE 2 MG/1 ML INJ IV PRN ×4 (01:05→18:53)
[2021-04-01] MEDS: ONDANSETRON 4 MG/2 ML INJ IV PRN ×2 (01:05→05:34)
[2021-04-01 03:48] LABS: Alanine Aminotransferase 9 units/L (7-56); Albumin 3.8 g/dL (3.9-5); BUN/Creatinine Ratio 24; Blood Urea Nitrogen 19 mg/dL (9-20); Calcium 8.6 mg/dL (8.4-10.2); Hemolysis Index 3
[2021-04-01 03:51] LABS: Basophils # (Auto) 0.1 K/mm3 (0.0-0.1); Eosinophils # (Auto) 0.4 K/mm3 (0.0-0.4); Eosinophils % (Auto) 6.2 % (0.0-4.3); Hematocrit 35.9 % (35.5-45.6); Hemoglobin 12.2 gm/dl (11.8-15.2); Lymphocytes # (Auto) 2.4 K/mm3 (1.2-5.4); Lymphocytes % (Auto) 37.1 % (13.4-35.0); Mean Corpuscular HGB Conc 34 % (32-34); Mean Corpuscular Volume 92 fl (84-94); Monocytes # (Auto) 0.7 K/mm3 (0.0-0.8); Monocytes % (Auto) 10.3 % (0.0-7.3); Platelet Count 202 K/mm3 (140-440); Red Cell Distribution Width 14.1 % (13.2-15.2)
[2021-04-01 04:01] LABS: Basophils % (Auto) 1.1 % (0.0-1.8)
[2021-04-01] MEDS: GABAPENTIN 300 MG CAP PO SCH ×3 (08:08→20:53)
[2021-04-01] MEDS: carvediloL 6.25 MG TAB PO SCH (09:44)
[2021-04-01] MEDS: GEMFIBROZIL 600 MG TAB PO SCH (09:45)
[2021-04-01] MEDS: PRAVASTATIN 80 MG TAB PO SCH (09:45)
[2021-04-01] MEDS: PANTOPRAZOLE 20 MG TAB PO SCH (09:45)
[2021-04-01] MEDS: SERTRALINE 25 MG TAB PO SCH (09:45)
[2021-04-01] MEDS ORDERED: NON-FORMULARY EACH (Terazosin Hcl [Terazosin Hcl] 10 MG Capsule) PO SCH (10:00)
--- NOTE | 2021-04-01 10:51 | Electrocardiograph Report ---
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 Electronically Signed On 04-01-2021 10:50:51 EDT by Elgin Bone
[2021-04-01] MEDS: NON-FORMULARY EACH (Mirabegron [Myrbetriq] 50 MG Tab.Er.24h) PO SCH (10:58)
[2021-04-01] MEDS ORDERED: PRASUGREL 10 MG TAB PO NR (11:00)
[2021-04-01 11:34] LABS: C-Reactive Protein 0.5 mg/dL (0.00-1.30)
[2021-04-01] MEDS: PRAZOSIN 5 MG CAP PO SCH (11:47)
[2021-04-01] MEDS: INSULIN GLARGINE 100 UNITS/ML SUB-Q SCH (11:52)
--- NOTE | 2021-04-01 14:00 | Consultation ---
History of Present Illness Consult date: 04/01/21 Consult reason: shortness of breath History of present illness: Patient is a 76-year-old man admitted yesterday through the emergency room with shortness of breath. He is well-known to our service, with a history of coronary artery disease, status post coronary stent implantation to the circumflex done 2 weeks ago. Last Thursday, he presented to our outpatient clinic with complaints of a rash to the torso and the face, which we surmised may have been due to Plavix. At that visit, we told him to discontinue Plavix and switched him to ticagrelor 90 mg twice daily, in addition to a single baby aspirin daily. The next day after he started the ticagrelor, he developed acute dyspnea which brought him to the emergency room. He is currently in the emergency room, states that his dyspnea is resolved, notably his ticagrelor was not continued on his admission medications. He has no chest pain, no palpitations, no orthopnea, no lower extremity edema. Left ventricle systolic ejection fraction was 40 to 45% at the time of cardiac catheterization 2 weeks ago. EKG currently is normal sinus rhythm, right bundle branch block which is chronic, no acute ST or T wave changes. Serial troponin levels were normal. Chest x-ray revealed a normal-sized cardiac silhouette, clear lungs. A device seen in the thorax appears likely a loop recorder. Past History Past Medical History: CAD, hypertension Past Surgical History: PTCA Medications and Allergies Allergies Allergy/AdvReac Type Severity Reaction Status Date / Time clopidogrel Allergy Rash Verified 03/31/21 21:08 isosorbide Allergy Rash Verified 03/31/21 21:08 Home Medications Medication Instructions Recorded Confirmed Last Taken Type Albuterol Sulfate [Albuterol 0.63% 0.63 mg IH TID 03/12/21 03/12/21 03/11/21 History NEBS] 3 ml Aspirin EC [Halfprin EC] 2 tab PO HS 03/12/21 03/12/21 03/11/21 History 2 tab Gabapentin 300 mg PO TID 03/12/21 03/12/21 03/11/21 History 300 mg Insulin Glargine [Lantus VIAL] 30 units SQ QAM 03/12/21 03/12/21 03/12/21 05:30 History 8 units Ipratropium/Albuter (Nf) 1 puff INHALATION PRN PRN 03/12/21 03/12/21 03/11/21 History [Combivent Inhaler] 1 puff Mirabegron [Myrbetriq] 50 mg PO QDAY 03/12/21 03/12/21 03/11/21 History 50 mg Multivit-Min/FA/Lycopen/Lutein 1 tab PO DAILY 03/12/21 03/12/21 03/11/21 History [Centrum Silver Tablet] 1 tab Pantoprazole [Protonix TAB] 20 mg PO DAILY 03/12/21 03/12/21 03/11/21 History 20 mg Pravastatin [Pravachol] 80 mg PO DAILY 03/12/21 03/12/21 03/11/21 History 80 mg Semaglutide [Ozempic] 0.5 mg SQ 1XW 03/12/21 03/12/21 03/11/21 History 0.5mg Sertraline [Zoloft] 75 mg PO DAILY 03/12/21 03/12/21 03/11/21 History 75 mg Terazosin HCl 10 mg PO DAILY 03/12/21 03/12/21 03/11/21 History 10 mg carvediloL [Coreg] 6.25 mg PO BID 03/12/21 03/12/21 03/11/21 History 6.25mg gemfibroziL [Lopid] 600 mg PO BID 03/12/21 03/12/21 03/11/21 History 600 mg ISOSORBIDE MONOnitrate [Imdur ER] 30 mg PO QDAY #30 tablet 03/13/21 Unknown Rx Ticagrelor [Brilinta] 90 mg PO BID 03/31/21 03/31/21 Unknown History Active Meds: Active Medications Acetaminophen (Acetaminophen 325 Mg Tab) 650 mg PO Q4H PRN PRN Reason: Pain MILD(1-3)/Fever >100.5/VICENTE Last Admin: 03/31/21 23:50 Dose: 650 mg Documented by: Aspirin (Aspirin Ec 81 Mg Tab) 81 mg PO HS [facility] Last Admin: 03/31/21 21:46 Dose: 81 mg Documented by: Carvedilol (Carvedilol 6.25 Mg Tab) 6.25 mg PO BID [facility] Last Admin: 04/01/21 09:44 Dose: 6.25 mg Documented by: Gabapentin (Gabapentin 300 Mg Cap) 300 mg PO TID [facility] Last Admin: 04/01/21 08:08 Dose: 300 mg Documented by: Gemfibrozil (Gemfibrozil 600 Mg Tab) 600 mg PO BID [facility] Last Admin: 04/01/21 09:45 Dose: 600 mg Documented by: Heparin Sodium (Porcine) (Heparin 5,000 Unit/1 Ml Vial) 5,000 unit SUB-Q Q12HR [facility] Hydromorphone HCl (Hydromorphone 1 Mg/1 Ml Inj) 0.5 mg IV Q3H PRN PRN Reason: Pain , Severe (7-10) Heparin Sodium/Sodium Chloride (Heparin/ 0.45% Nacl-25,000 Unit/500 Ml) 25,000 unit in 500 mls @ 20 mls/hr IV TITRATE [facility]; Protocol Last Titration: 04/01/21 04:10 Dose: 1,200 units/hr, 24 mls/hr Documented by: Sodium Chloride (Nacl 0.9% 1000 Ml) 1,000 mls @ 42 mls/hr IV DIRECT [facility] Last Admin: 03/31/21 22:54 Dose: 42 mls/hr Documented by: Insulin Glargine (Insulin Glargine 100 Units/Ml) 30 units SUB-Q QAM [facility] Last Admin: 04/01/21 11:52 Dose: 30 units Documented by: Levalbuterol HCl (Levalbuterol 0.63 Mg/3 Ml Nebu) 0.63 mg IH TIDRT [facility] Metoclopramide HCl (Metoclopramide 10 Mg/2 Ml Inj) 10 mg IV Q6H PRN PRN Reason: Nausea And Vomiting Miscellaneous Medication (Mirabegron [Myrbetriq]) 50 mg PO QDAY [facility] Last Admin: 04/01/21 10:58 Dose: Not Given Documented by: Morphine Sulfate (Morphine 2 Mg/1 Ml Inj) 2 mg IV Q4H PRN PRN Reason: Pain, Moderate (4-6) Last Admin: 04/01/21 10:12 Dose: 2 mg Documented by: Ondansetron HCl (Ondansetron 4 Mg/2 Ml Inj) 4 mg IV Q3H PRN PRN Reason: Nausea And Vomiting Last Admin: 04/01/21 05:34 Dose: 4 mg Documented by: Pantoprazole Sodium (Pantoprazole 20 Mg Tab) 20 mg PO DAILY [facility] Last Admin: 04/01/21 09:45 Dose: 20 mg Documented by: Pravastatin Sodium (Pravastatin 80 Mg Tab) 80 mg PO DAILY [facility] Last Admin: 04/01/21 09:45 Dose: 80 mg Documented by: Prazosin HCl (Prazosin 5 Mg Cap) 5 mg PO Q12HR [facility] Last Admin: 04/01/21 11:47 Dose: Not Given Documented by: Sertraline HCl (Sertraline 25 Mg Tab) 75 mg PO DAILY [facility] Last Admin: 04/01/21 09:45 Dose: Not Given Documented by: Sodium Chloride (Sodium Chloride 0.9% 10 Ml Flush Syringe) 10 ml IV BID [facility] Last Admin: 04/01/21 09:45 Dose: 10 ml Documented by: Sodium Chloride (Sodium Chloride 0.9% 10 Ml Flush Syringe) 10 ml IV PRN PRN PRN Reason: LINE FLUSH Review of Systems Cardiovascular: shortness of breath, no chest pain, no orthopnea, no palpitations, no rapid/irregular heart beat, no edema, no syncope, no lightheadedness Physical Examination Vital Signs Temp Pulse Resp BP Pulse Ox 98.1 F 70 20 148/76 96 03/31/21 16:27 03/31/21 16:27 03/31/21 16:27 03/31/21 16:27 03/31/21 16:27 General appearance: no acute distress HEENT: Positive: PERRL Neck: Positive: neck supple Cardiac: Positive: Reg Rate and Rhythm Lungs: Positive: clear to auscultation Neuro: Positive: Grossly Intact Abdomen: Positive: Soft Male genitourinary: Positive: deferred Skin: Positive: Clear Extremities: Absent: edema Results 04/01/21 03:04 04/01/21 10:56 Cardiac Enzymes 03/31/21 04/01/21 04/01/21 Range/Units 16:29 03:04 10:56 AST 13 11 (5-40) units/L Lactate Dehydrogenase 108 (91-180) units/L Coagulation 03/31/21 Range/Units 18:05 PT 13.3 (12.2-14.9) Sec. INR 0.95 (0.87-1.13) APTT 26.4 (24.2-36.6) Sec. CBC 03/31/21 03/31/21 04/01/21 Range/Units 16:29 18:22 03:04 WBC 6.3 6.6 (4.5-11.0) K/mm3 RBC 4.12 3.90 (3.65-5.03) M/mm3 Hgb 12.8 12.9 12.2 (11.8-15.2) gm/dl Hct 38.0 39.5 35.9 (35.5-45.6) % Plt Count 220 233 202 (140-440) K/mm3 Lymph # (Auto) 1.7 2.4 (1.2-5.4) K/mm3 [place] # (Auto) 0.7 0.7 (0.0-0.8) K/mm3 Eos # (Auto) 0.4 0.4 (0.0-0.4) K/mm3 Baso # (Auto) 0.1 0.1 (0.0-0.1) K/mm3 Comprehensive Metabolic Panel 03/31/21 04/01/21 04/01/21 Range/Units 16:29 03:04 10:56 Sodium 142 142 (137-145) mmol/L Potassium 4.4 3.9 (3.6-5.0) mmol/L Chloride 104.0 104.5 (98-107) mmol/L Carbon Dioxide 26 29 (22-30) mmol/L BUN 17 19 (9-20) mg/dL Creatinine 0.8 0.8 (0.8-1.3) mg/dL Glucose 108 H 114 H 113 H (75-100) mg/dL Calcium 9.0 8.6 (8.4-10.2) mg/dL AST 13 11 (5-40) units/L ALT 9 9 (7-56) units/L Alkaline Phosphatase 86 76 (35-129) units/L Total Protein 7.1 6.4 (6.3-8.2) g/dL Albumin 4.2 3.8 L (3.9-5) g/dL EKG interpretations - Telemetry EKG Rhythm: Sinus Rhythm (With right bundle branch block) Assessment and Plan - Patient Problems (1) Shortness of breath Current Visit: Yes Status: Acute Plan to address problem: The patient's shortness of breath was 1 day following the start of ticagrelor therapy, with no other obvious etiology, it is likely an allergic reaction to ticagrelor. We will discontinue this medication and plan for an alternative antiplatelet agent for this patient. In this setting, we will discontinue heparin, no further ischemic work-up is indicated. (2) Coronary angioplasty status Current Visit: Yes Status: Acute Plan to address problem: The patient is 2 weeks status post drug-eluting stent implantation in the circumflex system. He demonstrated an allergic rash which we surmised were due to his Plavix, and he currently now presents with dyspnea likely an allergic reaction to ticagrelor. The patient also has a contraindication to prasugrel, having suffered a stroke a year ago. The only option for dual antiplatelet therapy is ticlopidine 250 mg p.o. twice daily. I will discuss with the pharmacy about obtaining this medication for this patient.
[2021-04-01] MEDS: HEPARIN 5,000 UNIT/1 ML VIAL SUB-Q SCH (15:04)
--- NOTE | 2021-04-01 16:13 | Progress Note ---
Assessment and Plan Assessment and plan: 76-year-old male with history of coronary artery disease, hyperlipidemia, pulmonary embolism and hyperlipidemia comes in for chest pain since 03/13/2021. Patient had angioplasty and had PCI of the first obtuse marginal branch of the circumflex on March 12, 2021. Patient also had mild reversible ischemia on the stress thallium. Since Thursday which is 2 days ago the. Pain has become more and patient noticed on walking from bathroom to bed in the morning. Also with shortness of breath in the morning associated with chest pressure. He does not take nitroglycerin. Patient attributes the redness of the face to Plavix and it was stopped. Patient is now taking Brilinta twice a day. Exertion is a precipitating factor Chest x-ray shows no acute findings - Patient Problems (1) Unstable angina Current Visit: Yes Status: Acute Plan to address problem: Patient initiated on IV heparin drip per protocol Cardiology consult requested Will defer to cardiology regarding cardiac cath/stress test (2) Hypertension Current Visit: No Status: Chronic Qualifiers: Hypertension type: primary hypertension Qualified Code(s): I10 - Essential (primary) hypertension Plan to address problem: Continue antihypertensives and adjust medications as necessary (3) IDDM (insulin dependent diabetes mellitus) Current Visit: No Status: Chronic Plan to address problem: Continue home insulin, Ozempic and coverage Check hemoglobin A1c (4) Peripheral neuropathy Current Visit: No Status: Chronic Qualifiers: Peripheral neuropathy type: polyneuropathy, unspecified Qualified Code(s): G62.9 - Polyneuropathy, unspecified Plan to address problem: Continue Lyrica (5) COPD (chronic obstructive pulmonary disease) Current Visit: No Status: Chronic Qualifiers: Emphysema type: unspecified Plan to address problem: Nebulizer treatments on a as needed basis (6) OAB (overactive bladder) Current Visit: No Status: Chronic Plan to address problem: Patient on Myrbetriq (7) GERD (gastroesophageal reflux disease) Current Visit: No Status: Chronic Qualifiers: Esophagitis presence: without esophagitis Qualified Code(s): K21.9 - Gastro-esophageal reflux disease without esophagitis Plan to address problem: Continue PPIs (8) Hyperlipidemia Current Visit: No Status: Chronic Qualifiers: Hyperlipidemia type: mixed hyperlipidemia Qualified Code(s): E78.2 - Mixed hyperlipidemia Plan to address problem: Continue statins (9) Coronary artery disease Current Visit: No Status: Chronic Qualifiers: Coronary Disease-Associated Artery/Lesion type: [place] artery [place] vs. transplanted heart: [place] heart Plan to address problem: Patient had PCI and stent recently on March 12, 2021 Patient continues to have chest pain Patient is on Brilinta Plavix was discontinued because of possible allergic rash (10) DVT prophylaxis Current Visit: No Status: Acute Plan to address problem: On heparin drip and GI prophylaxis 04/01: Continue supportive care. Will obtain a Covid rule out for this patient. Will obtain pulmonary consultation. Patient continues on heparin drip awaiting cardiology plan of care. Other management based on test findings. Hospitalist Physical - Physical exam Narrative exam: VITAL SIGNS: Reviewed. GENERAL: The patient appears normally developed, Vital signs as documented. HEAD: No signs of head trauma. EYES: Pupils are equal. Extraocular motions intact. EARS: Hearing grossly intact. MOUTH: Oropharynx is normal. NECK: No adenopathy, no JVD. CHEST: Chest with fine crackles at the base breath sounds bilaterally. No wheezesi. CARDIAC: Regular rate and rhythm. S1 and S2, without murmurs, gallops, or rubs. VASCULAR: No Edema. Peripheral pulses normal and equal in all extremities. ABDOMEN: Soft, non tender and non distended. No rebound or guarding, and no masses palpated. Bowel Sounds normal. MUSCULOSKELETAL: Good range of motion of all major joints. Except for right upper extremity with amputation [1975] extremities without clubbing, cyanosis. +1 bilateral lower extremity pitting edema NEUROLOGIC EXAM: Alert and oriented x 3 No focal sensory or strength deficits. Speech normal. Follows commands. PSYCHIATRIC: Mood normal. SKIN: detail exam as documented in skin assessment - Constitutional Vitals: Temp Pulse Resp BP Pulse Ox 97.6 F 69 15 123/55 98 03/31/21 20:35 04/01/21 11:30 04/01/21 11:30 04/01/21 11:30 04/01/21 11:30 General appearance: Present: no acute distress HEART Score - HEART Score EKG: Non-specific Age: > 65 Risk factors: > 3 risk factors or hx of atherosclerotic disease Troponin: Troponin T < 0.010 ng/mL (0.00-0.029) 04/01/21 13:14 Troponin: < normal limit - Critical Actions Critical Actions: 4-6 pts:12-16.6% risk of adverse cardiac event. Should be adm itted Results - Labs CBC & Chem 7: 04/01/21 03:04 04/01/21 10:56 Labs: Laboratory Last Values WBC 6.6 K/mm3 (4.5-11.0) 04/01/21 03:04 RBC 3.90 M/mm3 (3.65-5.03) 04/01/21 03:04 Hgb 12.2 gm/dl (11.8-15.2) 04/01/21 03:04 Hct 35.9 % (35.5-45.6) 04/01/21 03:04 MCV 92 fl (84-94) 04/01/21 03:04 MCH 31 pg (28-32) 04/01/21 03:04 MCHC 34 % (32-34) 04/01/21 03:04 RDW 14.1 % (13.2-15.2) 04/01/21 03:04 Plt Count 202 K/mm3 (140-440) 04/01/21 03:04 Lymph % (Auto) 37.1 % (13.4-35.0) H 04/01/21 03:04 [place] % (Auto) 10.3 % (0.0-7.3) H 04/01/21 03:04 Eos % (Auto) 6.2 % (0.0-4.3) H 04/01/21 03:04 Baso % (Auto) 1.1 % (0.0-1.8) 04/01/21 03:04 Lymph # (Auto) 2.4 K/mm3 (1.2-5.4) 04/01/21 03:04 [place] # (Auto) 0.7 K/mm3 (0.0-0.8) 04/01/21 03:04 Eos # (Auto) 0.4 K/mm3 (0.0-0.4) 04/01/21 03:04 Baso # (Auto) 0.1 K/mm3 (0.0-0.1) 04/01/21 03:04 Seg Neutrophils % 45.3 % (40.0-70.0) 04/01/21 03:04 Seg Neutrophils # 3.0 K/mm3 (1.8-7.7) 04/01/21 03:04 PT 13.3 Sec. (12.2-14.9) 03/31/21 18:05 INR 0.95 (0.87-1.13) 03/31/21 18:05 APTT 26.4 Sec. (24.2-36.6) 03/31/21 18:05 D-Dimer 142.62 ng/mlDDU (0-234) 04/01/21 10:56 Heparin Anti-Xa Level 0.39 U.I./ml (0.3-0.7) 04/01/21 10:56 Sodium 142 mmol/L (137-145) 04/01/21 03:04 Potassium 3.9 mmol/L (3.6-5.0) 04/01/21 03:04 Chloride 104.5 mmol/L (98-107) 04/01/21 03:04 Carbon Dioxide 29 mmol/L (22-30) 04/01/21 03:04 Anion Gap 12 mmol/L 04/01/21 03:04 BUN 19 mg/dL (9-20) 04/01/21 03:04 Creatinine 0.8 mg/dL (0.8-1.3) 04/01/21 03:04 Estimated GFR > 60 ml/min 04/01/21 03:04 BUN/Creatinine Ratio 24 % 04/01/21 03:04 Glucose 113 mg/dL (75-100) H 04/01/21 10:56 POC Glucose 107 mg/dL (70-105) H 04/01/21 11:38 Calcium 8.6 mg/dL (8.4-10.2) 04/01/21 03:04 Ferritin 29.2 ng/mL (30.0-300.0) L 04/01/21 10:56 Total Bilirubin 0.20 mg/dL (0.1-1.2) 04/01/21 03:04 AST 11 units/L (5-40) 04/01/21 03:04 ALT 9 units/L (7-56) 04/01/21 03:04 Alkaline Phosphatase 76 units/L (35-129) 04/01/21 03:04 Lactate Dehydrogenase 108 units/L (91-180) 04/01/21 10:56 Troponin T < 0.010 ng/mL (0.00-0.029) 04/01/21 13:14 C-Reactive Protein 0.50 mg/dL (0.00-1.30) 04/01/21 10:56 Total Protein 6.4 g/dL (6.3-8.2) 04/01/21 03:04 Albumin 3.8 g/dL (3.9-5) L 04/01/21 03:04 Albumin/Globulin Ratio 1.5 % 04/01/21 03:04 Active Medications - Current Medications Current Medications: Generic Name Dose Route Start Last Admin Trade Name Freq PRN Reason Stop Dose Admin Acetaminophen 650 mg 03/31/21 20:36 03/31/21 23:50 Acetaminophen 325 Mg Tab PO 650 mg Q4H PRN Administration Pain MILD(1-3)/Fever >100.5/VICENTE Aspirin 81 mg 03/31/21 22:00 03/31/21 21:46 Aspirin Ec 81 Mg Tab PO 81 mg HS MARC Administration Carvedilol 6.25 mg 03/31/21 22:00 04/01/21 09:44 Carvedilol 6.25 Mg Tab PO 6.25 mg BID MARC Administration Gabapentin 300 mg 04/01/21 08:00 04/01/21 14:06 Gabapentin 300 Mg Cap PO 300 mg TID MARC Administration Gemfibrozil 600 mg 03/31/21 22:00 04/01/21 09:45 Gemfibrozil 600 Mg Tab PO 600 mg BID MARC Administration Heparin Sodium (Porcine) 5,000 unit 04/01/21 15:00 04/01/21 15:04 Heparin 5,000 Unit/1 Ml Vial SUB-Q 5,000 unit Q12HR MARC Administration Hydromorphone HCl 0.5 mg 03/31/21 20:36 Hydromorphone 1 Mg/1 Ml Inj IV Q3H PRN Pain , Severe (7-10) Heparin Sodium/Sodium Chloride 25,000 unit in 500 mls @ 20 mls/hr 03/31/21 19:00 04/01/21 04:10 Heparin/ 0.45% Nacl-25,000 Unit/500 Ml IV 1,200 units/hr TITRATE MARC 24 mls/hr Titration Protocol 1,000 UNITS/HR Sodium Chloride 1,000 mls @ 42 mls/hr 03/31/21 20:45 03/31/21 22:54 Nacl 0.9% 1000 Ml IV 42 mls/hr DIRECT MARC Administration Insulin Glargine 30 units 04/01/21 10:00 04/01/21 11:52 Insulin Glargine 100 Units/Ml SUB-Q 30 units QAM MARC Administration Levalbuterol HCl 0.63 mg 04/01/21 08:00 Levalbuterol 0.63 Mg/3 Ml Nebu IH TIDRT MARC Metoclopramide HCl 10 mg 03/31/21 20:36 Metoclopramide 10 Mg/2 Ml Inj IV Q6H PRN Nausea And Vomiting Miscellaneous Medication 50 mg 03/31/21 20:30 04/01/21 10:58 Mirabegron [Myrbetriq] PO Not Given QDAY [facility] Miscellaneous Medication 250 mg 04/01/21 22:00 Ticlopidine PO BID [facility] Morphine Sulfate 2 mg 03/31/21 20:36 04/01/21 10:12 Morphine 2 Mg/1 Ml Inj IV 2 mg Q4H PRN Administration Pain, Moderate (4-6) Ondansetron HCl 4 mg 03/31/21 20:36 04/01/21 05:34 Ondansetron 4 Mg/2 Ml Inj IV 4 mg Q3H PRN Administration Nausea And Vomiting Pantoprazole Sodium 20 mg 04/01/21 10:00 04/01/21 09:45 Pantoprazole 20 Mg Tab PO 20 mg DAILY MARC Administration Pravastatin Sodium 80 mg 03/31/21 21:00 04/01/21 09:45 Pravastatin 80 Mg Tab PO 80 mg DAILY MARC Administration Prazosin HCl 5 mg 04/01/21 10:00 04/01/21 11:47 Prazosin 5 Mg Cap PO Not Given Q12HR MARC Sertraline HCl 75 mg 03/31/21 21:00 04/01/21 09:45 Sertraline 25 Mg Tab PO Not Given DAILY MARC Sodium Chloride 10 ml 03/31/21 22:00 04/01/21 09:45 Sodium Chloride 0.9% 10 Ml Flush Syringe IV 10 ml BID MARC Administration Sodium Chloride 10 ml 03/31/21 20:36 Sodium Chloride 0.9% 10 Ml Flush Syringe IV PRN PRN LINE FLUSH
[2021-04-01] MEDS ORDERED: [UNRECOGNIZED DRUG - OTHER] PO SCH (22:00)
[2021-04-02] MEDS: ASPIRIN EC 81 MG TAB PO SCH ×2 (00:25→22:42)
[2021-04-02] MEDS: HEPARIN 5,000 UNIT/1 ML VIAL SUB-Q SCH ×3 (00:25→22:41)
[2021-04-02] MEDS: carvediloL 6.25 MG TAB PO SCH ×3 (00:26→22:42)
[2021-04-02] MEDS: GEMFIBROZIL 600 MG TAB PO SCH ×3 (00:26→22:39)
[2021-04-02] MEDS: PRAZOSIN 5 MG CAP PO SCH ×3 (00:28→22:40)
[2021-04-02 05:01] LABS: Hematocrit 35.5 % (35.5-45.6); Hemoglobin 11.9 gm/dl (11.8-15.2)
--- NOTE | 2021-04-02 09:41 | Progress Note ---
Assessment and Plan Shortness of breath following the start of ticagrelor therapy, with no other obvious etiology, it is likely an allergic reaction to ticagrelor which has been discontinued. Coronary angioplasty status 2 weeks status post drug-eluting stent implantation in the circumflex system. Plavix allergy The patient also has a contraindication to prasugrel, having suffered a stroke a year ago. Prior CVA Loop recorder insitu Traumatic Rt arm amputation Chronic RBBB Subjective Date of service: 04/02/21 Interval history: Patient denies shortness of breath and denies chest pain. Objective Vital Signs Temp Pulse Resp BP Pulse Ox 04/02/21 07:21 97.0 F L 63 20 119/46 98 04/02/21 04:18 98.6 F 68 18 122/53 94 04/02/21 00:28 75 04/02/21 00:26 73 04/01/21 23:41 98.4 F 80 18 134/59 93 04/01/21 22:18 96 04/01/21 22:00 90 26 H 154/59 95 04/01/21 21:58 81 21 154/59 96 04/01/21 21:46 80 22 136/54 96 04/01/21 21:30 80 25 H 136/54 95 04/01/21 21:16 83 15 136/54 94 04/01/21 21:00 83 24 136/54 97 04/01/21 20:46 88 20 118/58 95 04/01/21 20:30 87 21 118/58 90 04/01/21 20:16 89 13 118/58 91 04/01/21 20:00 83 19 118/58 93 04/01/21 19:46 73 18 127/61 99 04/01/21 19:30 86 17 127/61 96 04/01/21 19:16 69 22 127/61 98 04/01/21 19:00 70 21 127/61 97 04/01/21 18:46 75 19 125/68 97 04/01/21 18:30 74 18 125/68 97 04/01/21 18:16 73 22 125/68 97 04/01/21 18:00 75 18 125/68 97 04/01/21 17:46 75 22 137/63 97 04/01/21 17:30 75 23 137/63 96 04/01/21 17:16 76 24 137/63 98 09/27/21 17:00 78 24 137/63 96 04/01/21 16:46 87 14 141/57 87 04/01/21 16:30 74 23 141/57 98 04/01/21 16:16 70 19 141/57 98 04/01/21 16:00 82 20 141/57 98 04/01/21 15:46 73 19 131/54 98 04/01/21 15:30 75 21 131/54 97 04/01/21 15:16 69 19 131/54 98 04/01/21 15:00 80 19 131/54 98 04/01/21 14:46 80 20 131/54 88 04/01/21 14:30 76 22 131/54 90 04/01/21 14:16 76 21 131/54 04/01/21 14:00 80 17 131/54 04/01/21 13:46 87 12 151/45 04/01/21 13:30 76 21 151/45 04/01/21 13:16 80 18 151/45 04/01/21 13:00 78 20 151/45 04/01/21 12:46 79 18 151/45 04/01/21 12:30 77 14 151/45 04/01/21 12:16 75 21 151/45 04/01/21 12:00 81 12 151/45 04/01/21 11:46 75 12 123/55 04/01/21 11:30 69 15 123/55 98 04/01/21 11:16 68 21 123/55 98 04/01/21 11:00 68 20 123/55 99 04/01/21 10:46 71 14 123/55 98 04/01/21 10:30 70 20 123/55 98 04/01/21 10:16 71 20 123/55 98 04/01/21 10:00 69 21 123/55 98 04/01/21 09:46 74 12 159/81 97 - Physical Examination General: No Apparent Distress HEENT: Positive: PERRL Neck: Positive: neck supple Cardiac: Positive: Reg Rate and Rhythm Lungs: Positive: Decreased Breath Sounds Neuro: Positive: Grossly Intact Abdomen: Positive: Soft Skin: Positive: Clear Extremities: Absent: edema - Labs and Meds Cardiac Enzymes 04/01/21 Range/Units 10:56 Lactate Dehydrogenase 108 (91-180) units/L CBC 04/02/21 Range/Units 04:47 Hgb 11.9 (11.8-15.2) gm/dl Hct 35.5 (35.5-45.6) % Plt Count 197 (140-440) K/mm3 Comprehensive Metabolic Panel 04/01/21 Range/Units 10:56 Glucose 113 H (75-100) mg/dL - Imaging and Cardiology EKG: report reviewed (Right bundle branch block present)
[2021-04-02] MEDS ORDERED: PRASUGREL 10 MG TAB PO SCH (10:00)
--- NOTE | 2021-04-02 11:23 | Progress Note ---
Assessment and Plan Assessment and plan: 76-year-old male with history of coronary artery disease, hyperlipidemia, pulmonary embolism and hyperlipidemia comes in for chest pain since 03/13/2021. Patient had angioplasty and had PCI of the first obtuse marginal branch of the circumflex on March 12, 2021. Patient also had mild reversible ischemia on the stress thallium. Since Thursday which is 2 days ago the. Pain has become more and patient noticed on walking from bathroom to bed in the morning. Also with shortness of breath in the morning associated with chest pressure. He does not take nitroglycerin. Patient attributes the redness of the face to Plavix and it was stopped. Patient is now taking Brilinta twice a day. Exertion is a precipitating factor Chest x-ray shows no acute findings - Patient Problems (1) Unstable angina Current Visit: Yes Status: Acute Plan to address problem: Patient initiated on IV heparin drip per protocol Cardiology consult requested Will defer to cardiology regarding cardiac cath/stress test (2) Hypertension Current Visit: No Status: Chronic Qualifiers: Hypertension type: primary hypertension Qualified Code(s): I10 - Essential (primary) hypertension Plan to address problem: Continue antihypertensives and adjust medications as necessary (3) IDDM (insulin dependent diabetes mellitus) Current Visit: No Status: Chronic Plan to address problem: Continue home insulin, Ozempic and coverage Check hemoglobin A1c (4) Peripheral neuropathy Current Visit: No Status: Chronic Qualifiers: Peripheral neuropathy type: polyneuropathy, unspecified Qualified Code(s): G62.9 - Polyneuropathy, unspecified Plan to address problem: Continue Lyrica (5) COPD (chronic obstructive pulmonary disease) Current Visit: No Status: Chronic Qualifiers: Emphysema type: unspecified Plan to address problem: Nebulizer treatments on a as needed basis (6) OAB (overactive bladder) Current Visit: No Status: Chronic Plan to address problem: Patient on Myrbetriq (7) GERD (gastroesophageal reflux disease) Current Visit: No Status: Chronic Qualifiers: Esophagitis presence: without esophagitis Qualified Code(s): K21.9 - Gastro-esophageal reflux disease without esophagitis Plan to address problem: Continue PPIs (8) Hyperlipidemia Current Visit: No Status: Chronic Qualifiers: Hyperlipidemia type: mixed hyperlipidemia Qualified Code(s): E78.2 - Mixed hyperlipidemia Plan to address problem: Continue statins (9) Coronary artery disease Current Visit: No Status: Chronic Qualifiers: Coronary Disease-Associated Artery/Lesion type: [place] artery [place] vs. 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 Will obtain a Covid rule out for this patient. Will obtain pulmonary consultation. Patient continues on heparin drip awaiting cardiology plan of care. Other management based on test findings. 04/02: Patient seen and examined continue supportive care, Cardiology reported that this could be allergic reaction secondary to ticagrelor which has been discontinued. Also concerning for plavix allergy and patient also has a contraindication to prasugrel, having suffered a stroke a year ago. Patient is improving clinically is alejandra and respiratory status. Will await for identification of the right antiplatelet medication for this patient to be discharged with time hopefully anticipate discharge in a.m. History Interval history: Patient seen and examined resting comfortably reports improved clinical condition. Patient is at his baseline oxygen Hospitalist Physical - Physical exam Narrative exam: VITAL SIGNS: Reviewed. GENERAL: The patient appears normally developed, Vital signs as documented. HEAD: No signs of head trauma. EYES: Pupils are equal. Extraocular motions intact. EARS: Hearing grossly intact. MOUTH: Oropharynx is normal. NECK: No adenopathy, no JVD. CHEST: Chest with fine crackles at the base breath sounds bilaterally. No wheezesi. CARDIAC: Regular rate and rhythm. S1 and S2, without murmurs, gallops, or rubs. VASCULAR: No Edema. Peripheral pulses normal and equal in all extremities. ABDOMEN: Soft, non tender and non distended. No rebound or guarding, and no masses palpated. Bowel Sounds normal. MUSCULOSKELETAL: Good range of motion of all major joints. Except for right upper extremity with amputation [1975] extremities without clubbing, cyanosis. +1 bilateral lower extremity pitting edema NEUROLOGIC EXAM: Alert and oriented x 3 No focal sensory or strength deficits. Speech normal. Follows commands. PSYCHIATRIC: Mood normal. SKIN: detail exam as documented in skin assessment - Constitutional Vitals: Temp Pulse Resp BP Pulse Ox 97.0 F L 68 18 130/53 97 04/02/21 07:21 04/02/21 10:07 04/02/21 10:07 04/02/21 10:07 04/02/21 10:07 General appearance: Present: no acute distress HEART Score - HEART Score EKG: Non-specific Age: > 65 Risk factors: > 3 risk factors or hx of atherosclerotic disease Troponin: Troponin T < 0.010 ng/mL (0.00-0.029) 04/01/21 13:14 Troponin: < normal limit - Critical Actions Critical Actions: 4-6 pts:12-16.6% risk of adverse cardiac event. Should be admitted Results - Labs CBC & Chem 7: 04/02/21 04:47 04/01/21 10:56 Labs: Laboratory Last Values WBC 6.6 K/mm3 (4.5-11.0) 04/01/21 03:04 RBC 3.90 M/mm3 (3.65-5.03) 04/01/21 03:04 Hgb 11.9 gm/dl (11.8-15.2) 04/02/21 04:47 Hct 35.5 % (35.5-45.6) 04/02/21 04:47 MCV 92 fl (84-94) 04/01/21 03:04 MCH 31 pg (28-32) 04/01/21 03:04 MCHC 34 % (32-34) 04/01/21 03:04 RDW 14.1 % (13.2-15.2) 04/01/21 03:04 Plt Count 197 K/mm3 (140-440) 04/02/21 04:47 Lymph % (Auto) 37.1 % (13.4-35.0) H 04/01/21 03:04 [place] % (Auto) 10.3 % (0.0-7.3) H 04/01/21 03:04 Eos % (Auto) 6.2 % (0.0-4.3) H 04/01/21 03:04 Baso % (Auto) 1.1 % (0.0-1.8) 04/01/21 03:04 Lymph # (Auto) 2.4 K/mm3 (1.2-5.4) 04/01/21 03:04 [place] # (Auto) 0.7 K/mm3 (0.0-0.8) 04/01/21 03:04 Eos # (Auto) 0.4 K/mm3 (0.0-0.4) 04/01/21 03:04 Baso # (Auto) 0.1 K/mm3 (0.0-0.1) 04/01/21 03:04 Seg Neutrophils % 45.3 % (40.0-70.0) 04/01/21 03:04 Seg Neutrophils # 3.0 K/mm3 (1.8-7.7) 04/01/21 03:04 PT 13.3 Sec. (12.2-14.9) 03/31/21 18:05 INR 0.95 (0.87-1.13) 03/31/21 18:05 APTT 26.4 Sec. (24.2-36.6) 03/31/21 18:05 D-Dimer 142.62 ng/mlDDU (0-234) 04/01/21 10:56 Heparin Anti-Xa Level < 0.10 U.I./ml (0.3-0.7) L 04/01/21 16:37 Sodium 142 mmol/L (137-145) 04/01/21 03:04 Potassium 3.9 mmol/L (3.6-5.0) 04/01/21 03:04 Chloride 104.5 mmol/L (98-107) 04/01/21 03:04 Carbon Dioxide 29 mmol/L (22-30) 04/01/21 03:04 Anion Gap 12 mmol/L 04/01/21 03:04 BUN 19 mg/dL (9-20) 04/01/21 03:04 Creatinine 0.8 mg/dL (0.8-1.3) 04/01/21 03:04 Estimated GFR > 60 ml/min 04/01/21 03:04 BUN/Creatinine Ratio 24 % 04/01/21 03:04 Glucose 113 mg/dL (75-100) H 04/01/21 10:56 POC Glucose 150 mg/dL (70-105) H 04/02/21 10:04 Calcium 8.6 mg/dL (8.4-10.2) 04/01/21 03:04 Ferritin 29.2 ng/mL (30.0-300.0) L 04/01/21 10:56 Total Bilirubin 0.20 mg/dL (0.1-1.2) 04/01/21 03:04 AST 11 units/L (5-40) 04/01/21 03:04 ALT 9 units/L (7-56) 04/01/21 03:04 Alkaline Phosphatase 76 units/L (35-129) 04/01/21 03:04 Lactate Dehydrogenase 108 units/L (91-180) 04/01/21 10:56 Troponin T < 0.010 ng/mL (0.00-0.029) 04/01/21 13:14 C-Reactive Protein 0.50 mg/dL (0.00-1.30) 04/01/21 10:56 Total Protein 6.4 g/dL (6.3-8.2) 04/01/21 03:04 Albumin 3.8 g/dL (3.9-5) L 04/01/21 03:04 Albumin/Globulin Ratio 1.5 % 04/01/21 03:04 Procalcitonin < 0.05 ng/mL (<0.15) 04/01/21 10:56 Coronavirus (PCR) Negative (Negative) 04/01/21 Unknown Peoples/IV: Voiding Method Toilet Active Medications - Current Medications Current Medications: Generic Name Dose Route Start Last Admin Trade Name Freq PRN Reason Stop Dose Admin Acetaminophen 650 mg 03/31/21 20:36 03/31/21 23:50 Acetaminophen 325 Mg Tab PO 650 mg Q4H PRN Administration Pain MILD(1-3)/Fever >100.5/VICENTE Aspirin 81 mg 03/31/21 22:00 04/02/21 00:25 Aspirin Ec 81 Mg Tab PO 81 mg HS MARC Administration Carvedilol 6.25 mg 03/31/21 22:00 04/02/21 00:26 Carvedilol 6.25 Mg Tab PO 6.25 mg BID MARC Administration Gabapentin 300 mg 04/01/21 08:00 04/01/21 20:53 Gabapentin 300 Mg Cap PO 300 mg TID MARC Administration Gemfibrozil 600 mg 03/31/21 22:00 09/28/21 00:26 Gemfibrozil 600 Mg Tab PO 600 mg BID MARC Administration Heparin Sodium (Porcine) 5,000 unit 04/01/21 15:00 04/02/21 00:25 Heparin 5,000 Unit/1 Ml Vial SUB-Q 5,000 unit Q12HR MARC Administration Hydromorphone HCl 0.5 mg 03/31/21 20:36 04/01/21 18:55 Hydromorphone 1 Mg/1 Ml Inj IV 0.5 mg Q3H PRN Administration Pain , Severe (7-10) Sodium Chloride 1,000 mls @ 42 mls/hr 03/31/21 20:45 03/31/21 22:54 Nacl 0.9% 1000 Ml IV 42 mls/hr DIRECT MARC Administration Insulin Glargine 30 units 04/01/21 10:00 04/01/21 11:52 Insulin Glargine 100 Units/Ml SUB-Q 30 units QAM MARC Administration Levalbuterol HCl 0.63 mg 04/01/21 08:00 Levalbuterol 0.63 Mg/3 Ml Nebu IH TIDRT MARC Metoclopramide HCl 10 mg 03/31/21 20:36 Metoclopramide 10 Mg/2 Ml Inj IV Q6H PRN Nausea And Vomiting Miscellaneous Medication 50 mg 03/31/21 20:30 04/01/21 10:58 Mirabegron [Myrbetriq] PO Not Given QDAY [facility] Miscellaneous Medication 250 mg 04/01/21 22:00 Ticlopidine PO BID MARC Morphine Sulfate 2 mg 03/31/21 20:36 04/01/21 18:53 Morphine 2 Mg/1 Ml Inj IV 2 mg Q4H PRN Administration Pain, Moderate (4-6) Ondansetron HCl 4 mg 03/31/21 20:36 04/01/21 05:34 Ondansetron 4 Mg/2 Ml Inj IV 4 mg Q3H PRN Administration Nausea And Vomiting Pravastatin Sodium 80 mg 03/31/21 21:00 04/01/21 09:45 Pravastatin 80 Mg Tab PO 80 mg DAILY MARC Administration Prazosin HCl 5 mg 04/01/21 10:00 04/02/21 00:28 Prazosin 5 Mg Cap PO 5 mg Q12HR MARC Administration Sertraline HCl 75 mg 03/31/21 21:00 04/01/21 09:45 Sertraline 25 Mg Tab PO Not Given DAILY MARC Sodium Chloride 10 ml 03/31/21 22:00 04/02/21 00:37 Sodium Chloride 0.9% 10 Ml Flush Syringe IV 10 ml BID MARC Administration Sodium Chloride 10 ml 03/31/21 20:36 Sodium Chloride 0.9% 10 Ml Flush Syringe IV PRN PRN LINE FLUSH
[2021-04-02] MEDS: FAMOTIDINE 20 MG/2 ML INJ IV SCH ×2 (11:37→22:41)
[2021-04-02] MEDS: SERTRALINE 25 MG TAB PO SCH ×2 (11:38→11:46)
[2021-04-02] MEDS: GABAPENTIN 300 MG CAP PO SCH ×3 (11:38→22:39)
[2021-04-02] MEDS: PRAVASTATIN 80 MG TAB PO SCH (11:38)
[2021-04-02] MEDS: INSULIN GLARGINE 100 UNITS/ML SUB-Q SCH (11:39)
--- NOTE | 2021-04-02 11:41 | Consultation ---
History of Present Illness Consult date: 04/02/21 Requesting physician: DURGA RANGEL Reason for consult: dyspnea, COPD History of present illness: 76 y/o male with known COPD and chronic nocturnal respiratory failure along with KEITH but noncompliant with therapy admitted with acute onset of shortness of breath and chest pain. V/Q low prob for PE. Had recent stent placement on 03/12 and per chart, has had chest pain since then. He last saw Sarabjit in October of this year and had PFT's done on his initial visit back in July which results will be listed later. Remainder of the review is negative pulm alejandra. Past History Past Medical History: CAD, hypertension Past Surgical History: PTCA Medications and Allergies Allergies Allergy/AdvReac Type Severity Reaction Status Date / Time clopidogrel Allergy Rash Verified 03/31/21 21:08 isosorbide Allergy Rash Verified 03/31/21 21:08 Home Medications Medication Instructions Recorded Confirmed Last Taken Type Albuterol Sulfate [Albuterol 0.63% 0.63 mg IH TID 03/12/21 04/03/21 03/11/21 History NEBS] 3 ml Aspirin EC [Halfprin EC] 2 tab PO HS 03/12/21 04/03/21 03/11/21 History 2 tab Gabapentin 300 mg PO TID 03/12/21 04/03/21 03/11/21 History 300 mg Insulin Glargine [Lantus VIAL] 30 units SQ QAM 03/12/21 04/03/21 03/12/21 05:30 History 8 units Ipratropium/Albuter (Nf) 1 puff INHALATION PRN PRN 03/12/21 04/03/21 03/11/21 History [Combivent Inhaler] 1 puff Mirabegron [Myrbetriq] 50 mg PO QDAY 03/12/21 04/03/21 03/11/21 History 50 mg Multivit-Min/FA/Lycopen/Lutein 1 tab PO DAILY 03/12/21 04/03/21 03/11/21 History [Centrum Silver Tablet] 1 tab Pantoprazole [Protonix TAB] 20 mg PO DAILY 03/12/21 04/03/21 03/11/21 History 20 mg Pravastatin [Pravachol] 80 mg PO DAILY 03/12/21 04/03/21 03/11/21 History 80 mg Semaglutide [Ozempic] 0.5 mg SQ 1XW 03/12/21 04/03/21 03/11/21 History 0.5mg Sertraline [Zoloft] 75 mg PO DAILY 03/12/21 04/03/21 03/11/21 History 75 mg Terazosin HCl 10 mg PO DAILY 03/12/21 04/03/21 03/11/21 History 10 mg carvediloL [Coreg] 6.25 mg PO BID 03/12/21 04/03/21 03/11/21 History 6.25mg gemfibroziL [Lopid] 600 mg PO BID 03/12/21 04/03/21 03/11/21 History 600 mg ISOSORBIDE MONOnitrate [Imdur ER] 30 mg PO QDAY #30 tablet 03/13/21 04/03/21 Unknown Rx Prasugrel [Effient] 5 mg PO QDAY #30 tablet 04/03/21 Unknown Rx Active Meds: Active Medications Acetaminophen (Acetaminophen 325 Mg Tab) 650 mg PO Q4H PRN PRN Reason: Pain MILD(1-3)/Fever >100.5/VICENTE Last Admin: 03/31/21 23:50 Dose: 650 mg Documented by: Aspirin (Aspirin Ec 81 Mg Tab) 81 mg PO [facility] Last Admin: 04/02/21 00:25 Dose: 81 mg Documented by: Carvedilol (Carvedilol 6.25 Mg Tab) 6.25 mg PO BID [facility] Last Admin: 04/02/21 00:26 Dose: 6.25 mg Documented by: Diphenhydramine HCl (Diphenhydramine 25 Mg/10 Ml Oral Liquid) 25 mg PO ONCE ONE Stop: 04/02/21 12:31 Famotidine (Famotidine 20 Mg/2 Ml Inj) 20 mg IV BID [facility] Gabapentin (Gabapentin 300 Mg Cap) 300 mg PO TID [facility] Last Admin: 04/01/21 20:53 Dose: 300 mg Documented by: Gemfibrozil (Gemfibrozil 600 Mg Tab) 600 mg PO BID [facility] Last Admin: 04/02/21 00:26 Dose: 600 mg Documented by: Heparin Sodium (Porcine) (Heparin 5,000 Unit/1 Ml Vial) 5,000 unit SUB-Q Q12HR [facility] Last Admin: 04/02/21 00:25 Dose: 5,000 unit Documented by: Hydromorphone HCl (Hydromorphone 1 Mg/1 Ml Inj) 0.5 mg IV Q3H PRN PRN Reason: Pain , Severe (7-10) Last Admin: 04/01/21 18:55 Dose: 0.5 mg Documented by: Sodium Chloride (Nacl 0.9% 1000 Ml) 1,000 mls @ 42 mls/hr IV DIRECT [facility] Last Admin: 03/31/21 22:54 Dose: 42 mls/hr Documented by: Insulin Glargine (Insulin Glargine 100 Units/Ml) 30 units SUB-Q QAM [facility] Last Admin: 04/01/21 11:52 Dose: 30 units Documented by: Levalbuterol HCl (Levalbuterol 0.63 Mg/3 Ml Nebu) 0.63 mg IH TIDRT [facility] Metoclopramide HCl (Metoclopramide 10 Mg/2 Ml Inj) 10 mg IV Q6H PRN PRN Reason: Nausea And Vomiting Miscellaneous Medication (Mirabegron [Myrbetriq]) 50 mg PO QDAY [facility] Last Admin: 04/01/21 10:58 Dose: Not Given Documented by: Miscellaneous Medication (Ticlopidine) 250 mg PO BID [facility] Morphine Sulfate (Morphine 2 Mg/1 Ml Inj) 2 mg IV Q4H PRN PRN Reason: Pain, Moderate (4-6) Last Admin: 04/01/21 18:53 Dose: 2 mg Documented by: Ondansetron HCl (Ondansetron 4 Mg/2 Ml Inj) 4 mg IV Q3H PRN PRN Reason: Nausea And Vomiting Last Admin: 04/01/21 05:34 Dose: 4 mg Documented by: Pravastatin Sodium (Pravastatin 80 Mg Tab) 80 mg PO DAILY [facility] Last Admin: 04/01/21 09:45 Dose: 80 mg Documented by: Prazosin HCl (Prazosin 5 Mg Cap) 5 mg PO Q12HR [facility] Last Admin: 04/02/21 00:28 Dose: 5 mg Documented by: Sertraline HCl (Sertraline 25 Mg Tab) 75 mg PO DAILY [facility] Last Admin: 04/01/21 09:45 Dose: Not Given Documented by: Sodium Chloride (Sodium Chloride 0.9% 10 Ml Flush Syringe) 10 ml IV BID [facility] Last Admin: 04/02/21 00:37 Dose: 10 ml Documented by: Sodium Chloride (Sodium Chloride 0.9% 10 Ml Flush Syringe) 10 ml IV PRN PRN PRN Reason: LINE FLUSH Physical Examination Vital signs: Vital Signs Temp Pulse Resp BP Pulse Ox 98.1 F 70 20 148/76 96 03/31/21 16:27 03/31/21 16:27 03/31/21 16:27 03/31/21 16:27 03/31/21 16:27 Results - Laboratory Findings CBC and BMP: 04/02/21 04:47 04/01/21 10:56 PT/INR, D-dimer PT 13.3 Sec. (12.2-14.9) 03/31/21 18:05 INR 0.95 (0.87-1.13) 03/31/21 18:05 D-Dimer 142.62 ng/mlDDU (0-234) 04/01/21 10:56 Abnormal lab findings: Abnormal Labs 03/31/21 03/31/21 03/31/21 16:29 16:29 18:05 Lymph % (Auto) [place] % (Auto) 10.8 H Eos % (Auto) 5.6 H D-Dimer 237.61 H Heparin Anti-Xa Level Glucose 108 H POC Glucose Ferritin Albumin 04/01/21 04/01/21 04/01/21 03:04 03:04 03:04 Lymph % (Auto) 37.1 H [place] % (Auto) 10.3 H Eos % (Auto) 6.2 H D-Dimer Heparin Anti-Xa Level < 0.10 L Glucose 114 H POC Glucose Ferritin Albumin 3.8 L 04/01/21 04/01/21 04/01/21 08:48 10:56 10:56 Lymph % (Auto) [place] % (Auto) Eos % (Auto) D-Dimer Heparin Anti-Xa Level Glucose 113 H POC Glucose 138 H Ferritin 29.2 L Albumin 04/01/21 04/01/21 04/02/21 11:38 16:37 10:04 Lymph % (Auto) [place] % (Auto) Eos % (Auto) D-Dimer Heparin Anti-Xa Level < 0.10 L Glucose POC Glucose 107 H 150 H Ferritin Albumin - Diagnostic Findings Chest x-ray: image reviewed (hyperinflation consistent with air trapping) Assessment and Plan 76 y/o male with known COPD, nocturnal respiratory failure and KEITH noncompliance admitted with chest pain 1. No PE given low prob V/Q 2. Patient is currently only on Combivent. Was on Stiolto at one time based on office records but not taking. Has severe COPD (FEV1 of 40% predicted at 1.29 liters). Would likely benefit from Triple Therapy like Trelegy or Breztri (both non formulary here). Will add back scheduled duonebs while here and BID pulmicort therapy 3. Patient with known KEITH but noncomplaint with therapy (per chart cannot tolerate machine) 4. Follow up cards recs. 5. Don't feel COPD is exacerbated at this time so will hold on systemic steroids.
[2021-04-02] MEDS: LEVALBUTEROL 0.63 MG/3 ML NEBU IH SCH ×2 (12:01→12:02)
[2021-04-02] MEDS: PANTOPRAZOLE 20 MG TAB PO SCH (12:02)
--- NOTE | 2021-04-02 12:16 | Discharge Summary ---
Providers - Providers Date of Admission: 04/01/21 00:02 Attending physician: DURGA RANGEL MD 03/31/21 18:14 Consult to Physician [CONS] Stat Comment: Consulting Provider: SANGEETHA AMADOR Physician Instructions: Reason For Exam: unstable angina 04/01/21 08:29 Consult to Physician [CONS] Routine Comment: Consulting Provider: NILSA JIMÉNEZ Physician Instructions: Reason For Exam: copd exacerbation Primary care physician: NED VITALE MD Hospitalization Reason for admission: shortness of breath Condition: Stable Hospital course: 76-year-old male with history of coronary artery disease, hyperlipidemia, pulmonary embolism and hyperlipidemia comes in for chest pain since 03/13/2021. Patient had angioplasty and had PCI of the first obtuse marginal branch of the circumflex on March 12, 2021. Patient also had mild reversible ischemia on the stress thallium. Since Thursday which is 2 days ago the. Pain has become more and patient noticed on walking from bathroom to bed in the morning. Also with shortness of breath in the morning associated with chest pressure. He does not take nitroglycerin. Patient attributes the redness of the face to Plavix and it was stopped. Patient is now taking Brilinta twice a day. Exertion is a precipitating factor Chest x-ray shows no acute findings - Patient Problems (1) Unstable angina Current Visit: Yes Status: Acute Plan to address problem: Patient initiated on IV heparin drip per protocol Cardiology consult requested Will defer to cardiology regarding cardiac cath/stress test (2) Hypertension Current Visit: No Status: Chronic Qualifiers: Hypertension type: primary hypertension Qualified Code(s): I10 - Essential (primary) hypertension Plan to address problem: Continue antihypertensives and adjust medications as necessary (3) IDDM (insulin dependent diabetes mellitus) Current Visit: No Status: Chronic Plan to address problem: Continue home insulin, Ozempic and coverage Check hemoglobin A1c (4) Peripheral neuropathy Current Visit: No Status: Chronic Qualifiers: Peripheral neuropathy type: polyneuropathy, unspecified Qualified Code(s): G62.9 - Polyneuropathy, unspecified Plan to address problem: Continue Lyrica (5) COPD (chronic obstructive pulmonary disease) Current Visit: No Status: Chronic Qualifiers: Emphysema type: unspecified Plan to address problem: Nebulizer treatments on a as needed basis (6) OAB (overactive bladder) Current Visit: No Status: Chronic Plan to address problem: Patient on Myrbetriq (7) GERD (gastroesophageal reflux disease) Current Visit: No Status: Chronic Qualifiers: Esophagitis presence: without esophagitis Qualified Code(s): K21.9 - Gastro-esophageal reflux disease without esophagitis Plan to address problem: Continue PPIs (8) Hyperlipidemia Current Visit: No Status: Chronic Qualifiers: Hyperlipidemia type: mixed hyperlipidemia Qualified Code(s): E78.2 - Mixed hyperlipidemia Plan to address problem: Continue statins (9) Coronary artery disease Current Visit: No Status: Chronic Qualifiers: Coronary Disease-Associated Artery/Lesion type: [place] artery [place] vs. 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 Will obtain a Covid rule out for this patient. Will obtain pulmonary consultation. Patient continues on heparin drip awaiting cardiology plan of care. Other management based on test findings. 04/02: Patient seen and examined continue supportive care, Cardiology reported that this could be allergic reaction secondary to ticagrelor which has been discontinued. Also concerning for plavix allergy and patient also has a contraindication to prasugrel, having suffered a stroke a year ago. Patient is improving clinically is alejandra and respiratory status. Will await for identification of the right antiplatelet medication for this patient to be discharged with time hopefully anticipate discharge in a.m. Dehairer recommended dual antiplatelet therapy is ticlopidine 250 mg p.o. twice daily. Awaiting pharmacy to see if this medication can be identified In the meantime started the patient on Benadryl x1 and also changed PPI to famotidine due to the noted rash patient states has been ongoing for about a week following initiation of the antiplatelet medication Discussed extensively with cardiology, he is recommending discharge as patient can find this medication outpatient. I also discussed with the patient about the dissociated feelings he is having it appears this was due to opoids, he reports improvement. understands to stop the tricagrelor. Disposition: HOME / SELF CARE / HOMELESS Final Discharge Diagnosis (Prints w/discharge instructions): allergic reaction resulting in acute shortness of breath Time spent for discharge: 35 mins Core Measure Documentation - Palliative Care Palliative Care/ Comfort Measures: Not Applicable - Core Measures Any of the following diagnoses?: none Exam - Physical Exam Narrative exam: VITAL SIGNS: Reviewed. GENERAL: The patient appears normally developed, Vital signs as documented. HEAD: No signs of head trauma. EYES: Pupils are equal. Extraocular motions intact. EARS: Hearing grossly intact. MOUTH: Oropharynx is normal. NECK: No adenopathy, no JVD. CHEST: Chest with fine crackles at the base breath sounds bilaterally. No wheezesi. CARDIAC: Regular rate and rhythm. S1 and S2, without murmurs, gallops, or rubs. VASCULAR: No Edema. Peripheral pulses normal and equal in all extremities. ABDOMEN: Soft, non tender and non distended. No rebound or guarding, and no masses palpated. Bowel Sounds normal. MUSCULOSKELETAL: Good range of motion of all major joints. Except for right upper extremity with amputation [1975] extremities without clubbing, cyanosis. +1 bilateral lower extremity pitting edema NEUROLOGIC EXAM: Alert and oriented x 3 No focal sensory or strength deficits. Speech normal. Follows commands. PSYCHIATRIC: Mood normal. SKIN: detail exam as documented in skin assessment - Constitutional Vitals: Temp Pulse Resp BP Pulse Ox 98.1 F 67 20 147/54 96 04/02/21 11:54 04/02/21 11:54 04/02/21 11:54 04/02/21 11:54 04/02/21 11:54 Plan Follow up with: NED VITALE MD [Primary Care Provider] - 7 Days SANGEETHA AMADOR MD [Staff Physician] - 7 Days NILSA JIMÉNEZ MD [Staff Physician] - 7 Days Prescriptions: Ticlopidine 250 mg PO BID #60 tab
[2021-04-02] MEDS ORDERED: diphenhydrAMINE 25 MG/10 ML ORAL LIQUID PO ONE (12:30)
[2021-04-02] MEDS: ACETAMINOPHEN 325 MG TAB PO PRN (13:25)
[2021-04-02] MEDS ORDERED: ALBUTEROL 2.5 MG/3 ML NEBU IH PRN (14:00)
[2021-04-02] MEDS ORDERED: PRASUGREL 10 MG TAB PO ONE (15:00)
[2021-04-02] MEDS ORDERED: SERTRALINE 25 MG TAB PO SCH (22:00)
[2021-04-02] MEDS: SODIUM CHLORIDE 0.9% 1000 ML 1,000 ML IV SCH (22:53)
[2021-04-02] MEDS: IPRATROPIUM/ALBUTEROL SULFATE 3 ML AMPUL.NEB IH SCH ×2 (23:30)
[2021-04-02] MEDS: BUDESONIDE 0.5 MG/2 ML NEBU IH SCH (23:31)
[2021-04-03] MEDS: IPRATROPIUM/ALBUTEROL SULFATE 3 ML AMPUL.NEB IH SCH ×3 (03:44→14:19)
[2021-04-03 09:04] VITALS: BP 156/83
--- NOTE | 2021-04-03 09:34 | Discharge Summary ---
Providers - Providers Date of Admission: 04/01/21 00:02 Attending physician: DURGA RANGEL MD 03/31/21 18:14 Consult to Physician [CONS] Stat Comment: Consulting Provider: SANGEETHA AMADOR Physician Instructions: Reason For Exam: unstable angina 04/01/21 08:29 Consult to Physician [CONS] Routine Comment: Consulting Provider: NILSA JIMÉNEZ Physician Instructions: Reason For Exam: copd exacerbation Primary care physician: NED VITALE MD Hospitalization Reason for admission: Shortness of Condition: Stable Hospital course: 76-year-old male with history of coronary artery disease, hyperlipidemia, pulmonary embolism and hyperlipidemia comes in for chest pain since 03/13/2021. Patient had angioplasty and had PCI of the first obtuse marginal branch of the circumflex on March 12, 2021. Patient also had mild reversible ischemia on the stress thallium. Since Thursday which is 2 days ago the. Pain has become more and patient noticed on walking from bathroom to bed in the morning. Also with shortness of breath in the morning associated with chest pressure. He does not take nitroglycerin. Patient attributes the redness of the face to Plavix and it was stopped. Patient is now taking Brilinta twice a day. Exertion is a precipitating factor Chest x-ray shows no acute findings - Patient Problems (1) Unstable angina Current Visit: Yes Status: Acute Plan to address problem: Patient initiated on IV heparin drip per protocol Cardiology consult requested Will defer to cardiology regarding cardiac cath/stress test (2) Hypertension Current Visit: No Status: Chronic Qualifiers: Hypertension type: primary hypertension Qualified Code(s): I10 - Essential (primary) hypertension Plan to address problem: Continue antihypertensives and adjust medications as necessary (3) IDDM (insulin dependent diabetes mellitus) Current Visit: No Status: Chronic Plan to address problem: Continue home insulin, Ozempic and coverage Check hemoglobin A1c (4) Peripheral neuropathy Current Visit: No Status: Chronic Qualifiers: Peripheral neuropathy type: polyneuropathy, unspecified Qualified Code(s): G62.9 - Polyneuropathy, unspecified Plan to address problem: Continue Lyrica (5) COPD (chronic obstructive pulmonary disease) Current Visit: No Status: Chronic Qualifiers: Emphysema type: unspecified Plan to address problem: Nebulizer treatments on a as needed basis (6) OAB (overactive bladder) Current Visit: No Status: Chronic Plan to address problem: Patient on Myrbetriq (7) GERD (gastroesophageal reflux disease) Current Visit: No Status: Chronic Qualifiers: Esophagitis presence: without esophagitis Qualified Code(s): K21.9 - Gastro-esophageal reflux disease without esophagitis Plan to address problem: Continue PPIs (8) Hyperlipidemia Current Visit: No Status: Chronic Qualifiers: Hyperlipidemia type: mixed hyperlipidemia Qualified Code(s): E78.2 - Mixed hyperlipidemia Plan to address problem: Continue statins (9) Coronary artery disease Current Visit: No Status: Chronic Qualifiers: Coronary Disease-Associated Artery/Lesion type: [place] artery [place] vs. 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 Will obtain a Covid rule out for this patient. Will obtain pulmonary consultation. Patient continues on heparin drip awaiting cardiology plan of care. Other management based on test findings. 04/02: Patient seen and examined continue supportive care, Cardiology reported that this could be allergic reaction secondary to ticagrelor which has been discontinued. Also concerning for plavix allergy and patient also has a contraindication to prasugrel, having suffered a stroke a year ago. Patient is improving clinically is alejandra and respiratory status. Will await for identification of the right antiplatelet medication for this patient to be discharged with time hopefully anticipate discharge in a.m. Form Tamper Operator recommended dual antiplatelet therapy is ticlopidine 250 mg p.o. twice daily. Awaiting pharmacy to see if this medication can be identified In the meantime started the patient on Benadryl x1 and also changed PPI to famotidine due to the noted rash patient states has been ongoing for about a week following initiation of the antiplatelet medication Discussed extensively with cardiology, he is recommending discharge as patient can find this medication outpatient. I also discussed with the patient about the dissociated feelings he is having it appears this was due to opoids, he reports improvement. understands to stop the tricagrelor. 04/03: Patient's discharge was held yesterday as the planned ticlopidine has been discontinued and not available in the pharmacy. Discussed with silo filler a trial of Effient was done yesterday and will be used off label at a lower dose as this is the only alternative for this patient at this time. I have discussed associated risk with the patient he verbalized understanding and is agreeable to trying this medication. Yesterday he also noted euphoric out of body sensation which has since resolved. No further shortness of breath is noted today. Disposition: HOME / SELF CARE / HOMELESS Final Discharge Diagnosis (Prints w/discharge instructions): Allergic reaction resulting in acute respiratory failure now resolved Time spent for discharge: 35-minute Core Measure Documentation - Palliative Care Palliative Care/ Comfort Measures: Not Applicable - Core Measures Any of the following diagnoses?: none Exam - Physical Exam Narrative exam: VITAL SIGNS: Reviewed. GENERAL: The patient appears normally developed, Vital signs as documented. HEAD: No signs of head trauma. EYES: Pupils are equal. Extraocular motions intact. EARS: Hearing grossly intact. MOUTH: Oropharynx is normal. NECK: No adenopathy, no JVD. CHEST: Chest with fine crackles at the base breath sounds bilaterally. No wheezesi. CARDIAC: Regular rate and rhythm. S1 and S2, without murmurs, gallops, or rubs. VASCULAR: No Edema. Peripheral pulses normal and equal in all extremities. ABDOMEN: Soft, non tender and non distended. No rebound or guarding, and no masses palpated. Bowel Sounds normal. MUSCULOSKELETAL: Good range of motion of all major joints. Except for right upper extremity with amputation [1975] extremities without clubbing, cyanosis. +1 bilateral lower extremity pitting edema NEUROLOGIC EXAM: Alert and oriented x 3 No focal sensory or strength deficits. Speech normal. Follows commands. PSYCHIATRIC: Mood normal. SKIN: detail exam as documented in skin assessment - Constitutional Vitals: Temp Pulse Resp BP Pulse Ox 98.1 F 77 18 156/83 90 04/03/21 08:34 04/03/21 08:34 04/03/21 08:34 04/03/21 08:34 04/03/21 08:34 Plan Activity: advance as tolerated, fall precautions Diet: low salt Special Instructions: record daily weights, record daily BP diary Follow up with: NILSA JIMÉNEZ MD [Staff Physician] - 7 Days SANGEETHA AMADOR MD [Staff Physician] - 7 Days NED VITALE MD [Primary Care Provider] - 7 Days Prescriptions: Prasugrel [Effient] 5 mg PO QDAY #30 tablet
[2021-04-03] MEDS: PRAVASTATIN 80 MG TAB PO SCH (09:53)
[2021-04-03] MEDS: INSULIN GLARGINE 100 UNITS/ML SUB-Q SCH (09:53)
[2021-04-03] MEDS: GABAPENTIN 300 MG CAP PO SCH ×2 (09:57→13:59)
[2021-04-03] MEDS: carvediloL 6.25 MG TAB PO SCH (09:59)
[2021-04-03] MEDS: HEPARIN 5,000 UNIT/1 ML VIAL SUB-Q SCH (09:59)
[2021-04-03] MEDS: FAMOTIDINE 20 MG/2 ML INJ IV SCH (10:00)
[2021-04-03] MEDS: GEMFIBROZIL 600 MG TAB PO SCH (10:00)
[2021-04-03] MEDS ORDERED: PRASUGREL 10 MG TAB PO SCH (10:00)
[2021-04-03] MEDS: BUDESONIDE 0.5 MG/2 ML NEBU IH SCH (10:16)
[2021-04-03] MEDS: PRAZOSIN 5 MG CAP PO SCH (10:18)
--- NOTE | 2021-04-03 11:33 | Progress Note ---
Assessment and Plan Shortness of breath following the start of ticagrelor therapy, with no other obvious etiology, it is likely an allergic reaction to ticagrelor which has been discontinued. Coronary angioplasty status 2 weeks status post drug-eluting stent implantation in the circumflex system. Plavix allergy Ticlopidine is not available in the hospital formulary, and also not available in outside pharmacies. Prior CVA Loop recorder insitu Traumatic Rt arm amputation Chronic RBBB Recommendations: Continue medical therapy for coronary artery disease. Will use low dose prasugrel and aspirin for oral antiplatelet therapy. Stable cardiac alejandra. Subjective Date of service: 04/03/21 Interval history: Patient has no complaints. He reports feeling better and wants to go home. Objective Vital Signs Temp Pulse Pulse Resp Resp BP Pulse Ox 04/03/21 10:00 95 04/03/21 09:59 77 156/83 04/03/21 08:34 98.1 F 77 18 156/83 90 04/03/21 08:00 72 18 04/03/21 04:50 97.4 F L 73 16 150/65 90 04/03/21 02:00 98 04/02/21 23:42 97.9 F 18 155/83 04/02/21 23:36 97 04/02/21 23:35 78 18 04/02/21 22:42 76 04/02/21 22:40 76 147/54 04/02/21 19:34 89 12 04/02/21 14:17 18 96 04/02/21 14:00 69 04/02/21 13:25 147/54 04/02/21 11:54 98.1 F 67 20 147/54 96 04/02/21 11:38 130/53 - Physical Examination General: No Apparent Distress HEENT: Positive: PERRL Neck: Positive: neck supple Cardiac: Positive: Reg Rate and Rhythm Lungs: Positive: Decreased Breath Sounds Neuro: Positive: Grossly Intact Abdomen: Positive: Soft Skin: Positive: Other (dry) Extremities: Absent: edema
--- NOTE | 2021-04-03 12:49 | Progress Note ---
Assessment and Plan 76 y/o male with known COPD, nocturnal respiratory failure and KEITH noncompliance admitted with chest pain 04/03/21: No objection to discharge. Follow up with Sarabjit at next scheduled appointment. 1. No PE given low prob V/Q 2. Patient is currently only on Combivent. Was on Stiolto at one time based on office records but not taking. Has severe COPD (FEV1 of 40% predicted at 1.29 liters). Would likely benefit from Triple Therapy like Trelegy or Breztri (both non formulary here). Will add back scheduled duonebs while here and BID pulmicort therapy 3. Patient with known KEITH but noncomplaint with therapy (per chart cannot katiana erate machine) 4. Follow up cards recs. 5. Don't feel COPD is exacerbated at this time so will hold on systemic steroids. Subjective Date of service: 04/03/21 Interval history: Patient being discharged today. Objective Vital Signs - 12hr 04/03/21 04/03/21 04/03/21 02:00 04:50 08:00 Temperature 97.4 F L Pulse Rate 73 Pulse Rate [ 72 Bilateral] Respiratory 16 Rate Respiratory 18 Rate [Bilateral ] Blood Pressure 150/65 O2 Sat by Pulse 98 90 Oximetry 04/03/21 04/03/21 04/03/21 08:34 09:59 10:00 Temperature 98.1 F Pulse Rate 77 77 Pulse Rate [ Bilateral] Respiratory 18 Rate Respiratory Rate [Bilateral ] Blood Pressure 156/83 156/83 O2 Sat by Pulse 90 95 Oximetry CBC and BMP: 04/02/21 04:47 04/01/21 10:56 ABG, PT/INR, D-dimer: PT/INR, D-dimer PT 13.3 Sec. (12.2-14.9) 03/31/21 18:05 INR 0.95 (0.87-1.13) 03/31/21 18:05 D-Dimer 142.62 ng/mlDDU (0-234) 04/01/21 10:56 Abnormal lab findings: Abnormal Labs 03/31/21 03/31/21 03/31/21 16:29 16:29 18:05 Lymph % (Auto) [place] % (Auto) 10.8 H Eos % (Auto) 5.6 H D-Dimer 237.61 H Heparin Anti-Xa Level Glucose 108 H POC Glucose Ferritin Albumin 04/01/21 04/01/21 04/01/21 03:04 03:04 03:04 Lymph % (Auto) 37.1 H [place] % (Auto) 10.3 H Eos % (Auto) 6.2 H D-Dimer Heparin Anti-Xa Level < 0.10 L Glucose 114 H POC Glucose Ferritin Albumin 3.8 L 04/01/21 04/01/21 04/01/21 08:48 10:56 10:56 Lymph % (Auto) [place] % (Auto) Eos % (Auto) D-Dimer Heparin Anti-Xa Level Glucose 113 H POC Glucose 138 H Ferritin 29.2 L Albumin 04/01/21 04/01/21 04/02/21 11:38 16:37 10:04 Lymph % (Auto) [place] % (Auto) Eos % (Auto) D-Dimer Heparin Anti-Xa Level < 0.10 L Glucose POC Glucose 107 H 150 H Ferritin Albumin 04/02/21 04/02/21 04/02/21 11:52 16:32 20:27 Lymph % (Auto) [place] % (Auto) Eos % (Auto) D-Dimer Heparin Anti-Xa Level Glucose POC Glucose 154 H 135 H 144 H Ferritin Albumin 04/03/21 04/03/21 07:47 11:21 Lymph % (Auto) [place] % (Auto) Eos % (Auto) D-Dimer Heparin Anti-Xa Level Glucose POC Glucose 113 H 118 H Ferritin Albumin
== END 2021-04-03 14:36 | disposition home or self-care (01) ==
LOC: ED 16:08 → 4A 04-01 00:02 → INTOOBSV 04-01 00:02 → 4A 04-01 20:17
PROVIDERS: ADMIT Internal Medicine; ATTEND Internal Medicine
DX: I25.110 Atherosclerotic heart disease of native coronary artery with unstable angina pectoris (principal); Z20.822 Contact with and (suspected) exposure to COVID-19; I24.9 Acute ischemic heart disease, unspecified; I10 Essential (primary) hypertension; E11.9 Type 2 diabetes mellitus without complications; G62.9 Polyneuropathy, unspecified; J44.9 Chronic obstructive pulmonary disease, unspecified; N32.81 Overactive bladder; K21.9 Gastro-esophageal reflux disease without esophagitis; I45.10 Unspecified right bundle-branch block; E78.5 Hyperlipidemia, unspecified; M19.90 Unspecified osteoarthritis, unspecified site; Z87.891 Personal history of nicotine dependence; Z79.4 Long term (current) use of insulin; Z79.82 Long term (current) use of aspirin
CPT/HCPCS: 36415; 71046; 78580; 80053; 82728; 82947; 82962; 83615; 84145; 84484; 85014; 85018; 85025; 85049; 85379; 85520; 85610; 85730; 86140; 93005; 94640; 94760; 96361; 96365; 96366; 96372; 96375; 96376; 99285; A6250; A9270; A9540; G0378; J1170; J1644; J2270; J2405; J7030; U0003; J1815

== ENCOUNTER 2021-09-25 10:20 | Outpatient (CLI) | payer MEDICARE ==
[2021-09-25 11:07] LABS: Blood Urea Nitrogen 16 mg/dL (9-20)
--- NOTE | 2021-09-25 12:07 | Vascular Lab Report ---
DUPLEX DOPPLER ULTRASOUND CAROTID, BILATERAL INDICATION / CLINICAL INFORMATION: STROKE. COMPARISON: None available. FINDINGS: RIGHT CAROTID: Mild atherosclerotic plaque. - PLAQUE ESTIMATE (%): < 50% - CCA velocity: 78 cm/sec. - ICA peak systolic velocity: 89 cm/sec. - ICA/CCA PSV Ratio: Less than 2. Right Vertebral Artery: Antegrade flow. LEFT CAROTID: Mild to moderate atherosclerotic plaque. - PLAQUE ESTIMATE (%): < 50% - CCA velocity: 78 cm/sec. - ICA peak systolic velocity: 100 cm/sec. - ICA/CCA PSV Ratio: Less than 2. Left Vertebral Artery: Antegrade flow. IMPRESSION: 1. Right Internal Carotid Artery: Less than 50% diameter stenosis. 2. Left Internal Carotid Artery: Less than 50% diameter stenosis. Velocity criteria are extrapolated from diameter data as defined by the Society of Radiologists in Ul trasound Consensus Conference, Radiology 2003; 229;340-346. NO STENOSIS (NORMAL) - Plaque = none; ICA PSV < 125 cm/sec; ICA/CCA PSV Ratio < 2.0 <50% STENOSIS - Plaque < 50%; ICA PSV < 125 cm/sec; ICA/CCA PSV Ratio < 2.0 50-69% STENOSIS - Plaque > 50%; ICA PSV = 125-230 cm/sec; ICA/CCA PSV Ratio = 2.0-4.0 >70% BUT <100% STENOSIS - Plaque > 50%; ICA PSV > 230 cm/sec; ICA/CCA PSV Ratio > 4.0 NEAR OCCLUSION - Plaque = visible lumen; ICA PSV = high/low/none; ICA/CCA PSV Ratio = variable TOTAL OCCLUSION - Plaque = no lumen; ICA PSV = none; ICA/CCA PSV Ratio = N/A Scribed by: Carolann Larios RDMS, RVT, RMSKS Scribed: 09/25/2021 10:52 AM I have reviewed the images, agree with this report, and edited this report as needed. Signer Name: Amrit Contreras MD Signed: 09/25/2021 12:02 PM Workstation Name: [id number]
--- NOTE | 2021-09-25 16:27 | Magnetic Resonance Report ---
MR brain wo/w con INDICATION / CLINICAL INFORMATION: 76 years Male; STROKE---BLURRED VISION--LEFT SIDE HEADACHE. TECHNIQUE: Multiplanar, multisequence MR images of the brain were obtained. COMPARISON: None available. 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 Calcarine cortex is involved. Findings extend into the lingual gyrus. There are mild, diffuse areas of increased signal intensity on FLAIR imaging in the white matter of t he cerebral hemispheres. These are nonspecific findings and may be related to microangiopathy (hypert ension, diabetes, atherosclerosis), given the patient's age. Otherwise, no acute ischemia, acute hemorrhage, or hydrocephalus. CRANIOCERVICAL JUNCTION: No significant abnormality. VASCULAR FLOW-VOIDS: No significant abnormality. ORBITS: No significant abnormality of visualized orbits. SINUSES / MASTOIDS: Mild to moderate mucosal thickening in the ethmoids. ADDITIONAL FINDINGS: None. IMPRESSION: 1. No focal mass, hemorrhage, hydrocephalus, or acute ischemia. Signer Name: Riky Wahl MD, III Signed: 09/25/2021 4:23 PM Workstation Name: [id number]
--- NOTE | 2021-09-25 16:31 | Magnetic Resonance Report ---
. MR MRA/MRV head wo con INDICATION / CLINICAL INFORMATION: 76 years Male; STROKE---BLURRED VISION--LEFT SIDE HEADACHE. TECHNIQUE: 3-D time of flight. NASCET type criteria used to evaluate stenoses. COMPARISON: None available. FINDINGS: INTERNAL CAROTID ARTERIES: No significant narrowing appreciated. VERTEBROBASILAR SYSTEM: No significant narrowing appreciated. DISTAL BRANCHES: Distal branches of the anterior and middle cerebral arteries are fairly symmetric in appearance and number. The right posterior cerebral artery is largely not visualized-small P1 segment visualized-consistent with findings of encephalomalacia in the right [employer]BLER territory. Focal area of moderate narrowing is see n in the P2 region of the left posterior cerebral artery. ANEURYSM: None identified. Suggested infundibulum is associated with an imperceptible, presumed very small, posterior communicating artery on the left. IMPRESSION: Abnormalities in the posterior cerebral arteries, as described above. Signer Name: Riky Wahl MD, III Signed: 09/25/2021 4:26 PM Workstation Name: [id number]
--- NOTE | 2021-09-25 16:33 | Magnetic Resonance Report ---
. MR MRA/MRV neck wo/w con INDICATION / CLINICAL INFORMATION: 76 years Male; STROKE---BLURRED VISION--LEFT SIDE HEADACHE. TECHNIQUE: 2-D time of flight performed prior to contrast. 3-D evaluation performed following IV cont rast administration. NASCET criteria used for stenosis evaluation. COMPARISON: None available. FINDINGS: ARCH: Normal aortic arch branching suggested. CAROTID ARTERIES: The visualized common and internal carotid arteries are widely patent. VERTEBRAL ARTERIES: Codominant vertebral system seen. Focal areas of [id number] narrowing are s een proximally in both vertebral arteries. IMPRESSION: No hemodynamically significant stenosis appreciated on this MRA of the neck. Signer Name: Riky Wahl MD, III Signed: 09/25/2021 4:29 PM Workstation Name: [id number]
== END 2021-09-25 10:21 | disposition home or self-care (01) ==
LOC: MRI 10:20
PROVIDERS: ATTEND Specialist
DX: I70.213 Atherosclerosis of native arteries of extremities with intermittent claudication, bilateral legs (principal); I63.331 Cerebral infarction due to thrombosis of right posterior cerebral artery; I65.03 Occlusion and stenosis of bilateral vertebral arteries; G93.89 Other specified disorders of brain
CPT/HCPCS: 36415; 70544; 70549; 70553; 82565; 84520; 93880; A9575